=== PATIENT | female | born 1980 | race Caucasian/White ===

== ENCOUNTER → 2020-05-03 11:44 | Outpatient (CLI) | payer BC, SELFPAY ==
[2020-05-03 12:33] LABS: Basophils % 0.6 % (0.1-2.0); Eosinophils # 0.1 K/mm3 (0.0-0.4); Eosinophils % 2.1 % (0.1-12.0); Hematocrit 32.7 % (37.0-47.0); Lymphocytes # 1.3 K/mm3 (0.7-4.5); Lymphocytes % 24.4 % (10-50); Mean Corpuscular HGB Conc 27.6 g/dL (31.8-35.4); Mean Corpuscular Volume 69.1 fl (81-99); Mean Platelet Volume 6.8 fl (7.4-10.4); Monocytes # 0.2 K/mm3 (0.1-1.0); Monocytes % 4.5 % (1.7-9.3); Neutrophils # 3.7 K/mm3 (1.8-7.8); Neutrophils % 68.4 % (37.0-80.0); Platelet Count 454 K/mm3 (142-424); Red Blood Count 4.74 M/mm3 (4.20-5.40); Red Cell Distribution Width 16.6 % (11.5-17.5); White Blood Count 5.4 K/mm3 (4.8-10.8)
[2020-05-03 14:22] LABS: Chol/HDL Ratio 2.5 (1-3.5); Cholesterol 192 mg/dl (140-200); HDL Cholesterol 76 mg/dl (40-60); Triglycerides 109 mg/dl (30-150); VLDL Cholesterol 22 mg/dL (0-40)
[2020-05-03 14:32] LABS: Direct LDL Cholesterol 93.83 mg/dL (100-129)
[2020-05-03 14:39] LABS: 25-OH Vitamin D, Total 37.1 ng/mL (30-100)
[2020-05-03 14:55] LABS: Thyroid Stimulating Hormone 0.89 uIU/mL (0.465-4.68)
[2020-05-03 15:13] LABS: Vitamin B12 921 pg/mL (239-931)
[2020-05-04 15:48] LABS: Iron 24 ug/dL (37-170)
[2020-05-04 15:56] LABS: Total Iron Binding Capacity 460 ug/dL (265-497)
[2020-05-04 16:26] LABS: Ferritin 4.15 ng/ml (6.24-137)
[2020-05-04 18:49] LABS: Folate > 20.00 ng/mL
== END ==
PROVIDERS: Visit Provider Physician Assistant
DX: R53.83 Other fatigue (principal)
CPT/HCPCS: 36415; 80061; 82306; 82607; 82728; 82746; 83540; 83550; 84439; 84443; 85025

== ENCOUNTER → 2020-11-01 14:14 | Outpatient (CLI) | payer BC, OTHER, SELFPAY ==
--- NOTE | 2020-11-01 14:14 | US_ITS ---
PROCEDURE: US TRANSVAGINAL CLINICAL INDICATION: dub Dysfunctional uterine bleeding, pelvic mass on physical exam COMPARISON: No exams were available for comparison FINDINGS: UTERUS: 13cm x 12cmx 10cm. There is a large central fibroid measuring 10 x 8 cm. Endometrial stripe is not visible because of the fibroid. An additional fibroid is also noted posteriorly at 4 x 2.6 cm. LEFT OVARY: [id number] with a volume of 5.3ml. RIGHT OVARY: [id number] with a volume of 8.9ml. No cul-de-sac fluid. IMPRESSION: Enlarged uterus with 10 x 8 cm and a 4 x 2.6 cm fibroid Dictated by: Wilfrido Goldman MD 11/01/2020 17:36 Wilfrido Goldman MD in OV 11/01/2020 17:36
== END ==
PROVIDERS: PCP Family Medicine; Visit Provider Nurse Practitioner Obstetrics & Gynecology
DX: N93.8 Other specified abnormal uterine and vaginal bleeding (principal); D21.9 Benign neoplasm of connective and other soft tissue, unspecified; N85.2 Hypertrophy of uterus
CPT/HCPCS: 76830

== ENCOUNTER → 2020-11-29 08:20 | Outpatient (CLI) | payer BC, OTHER, SELFPAY ==
[2020-11-29 08:55] LABS: Basophils # 0.1 K/mm3 (0-0.2); Basophils % 0.7 % (0.1-2.0); Eosinophils # 0.2 K/mm3 (0.0-0.4); Eosinophils % 2.6 % (0.1-12.0); Hematocrit 43.5 % (37.0-47.0); Hemoglobin 13.7 g/dL (12.2-16.2); Lymphocytes # 1.3 K/mm3 (0.7-4.5); Lymphocytes % 18.1 % (10-50); Mean Corpuscular HGB Conc 31.4 g/dL (31.8-35.4); Mean Corpuscular Hemoglobin 27.9 pg (27.0-31.2); Mean Corpuscular Volume 88.6 fl (81-99); Mean Platelet Volume 7.6 fl (7.4-10.4); Monocytes # 0.4 K/mm3 (0.1-1.0); Monocytes % 5.6 % (1.7-9.3); Neutrophils # 5.1 K/mm3 (1.8-7.8); Platelet Count 347 K/mm3 (142-424); Red Blood Count 4.91 M/mm3 (4.20-5.40); Red Cell Distribution Width 17.1 % (11.5-17.5)
[2020-11-29 09:25] LABS: Chloride 106 mmol/L (98-107)
[2020-11-29 09:26] LABS: Potassium 4.8 mmoL/L (3.5-5.1); Sodium 138 mmol/L (136-145)
[2020-11-29 09:27] LABS: HCG Qualitative, Serum Negative (Negative)
[2020-11-29 09:29] LABS: Anion Gap 15.8 mEq/L (5-15); Blood Urea Nitrogen 11 mg/dl (7-17); Calcium 9.8 mg/dl (8.4-10.2); Carbon Dioxide 21 mmol/L (22.0-30.0); Estimated Glomerular Filt Rate 111 ml/min (>60); GFR (African American) 134 ML/MIN (>60); Glucose 94 mg/dl (74-100)
== END ==
PROVIDERS: PCP Physician Assistant; Visit Provider Nurse Practitioner Obstetrics & Gynecology
DX: Z01.818 Encounter for other preprocedural examination (principal); Z20.822 Contact with and (suspected) exposure to COVID-19; D25.9 Leiomyoma of uterus, unspecified; D64.9 Anemia, unspecified; N92.0 Excessive and frequent menstruation with regular cycle; N85.2 Hypertrophy of uterus
CPT/HCPCS: 36415; 80048; 84703; 85025; U0003

== ENCOUNTER 2020-11-30 10:56 | Inpatient (IN) | payer BC, OTHER, SELFPAY ==
[2020-11-27 10:08] VITALS: BMI 30.1
[2020-11-30] VITALS (27 sets, daily range): BP systolic 110–154; BP diastolic 51–78; PULSE 81–104; RESP 14–18; TEMP 36.3–43; O2SAT 92–100
--- NOTE | 2020-11-30 06:49 | P.PN_ITS ---
[facility] Anesthesia Checklist - Structural Data Admitted From: Home Planned Operative Procedure/s: bhavin,bso Consent for Planned Operative Procedure(s) Verified: Yes - Additional verifications Anesthesia Reactions: No Hx Blood Transfusions: No Blood Transfusion Reaction: No - Airway Assessment C-Spine Mobility Assessed: Yes TMJ Mobility Assessed: Yes Dentition: Good Dentition - Neurological Assessment Level of Consciousness: Awake, Alert, Appropriate - Anesthesia Plan Anesthesia Risk discussed: Yes Anesthesia Plan: Verified ASA Class: II Anesthesia Type: General [facility] History I have reviewed the patient's past medical history: Yes Medical History: Denies:: Cancer, Diabetes Mellitus Type 1, Diabetes Mellitus Type 2, Internal Pacemaker, MRSA *Have you ever received a pneumonia vaccine?: No *Have you received a flu vaccine this season?: Yes Other Medical History: Reports: Anemia. Denies: Blood Transfusion Reaction Anesthesia experience/problems:: none Other Surgeries: Yes: No Previous Surgery, Tubal Ligation. No: Pacemaker Amputation: No Fractures: No - *Social History Last grade of school completed: Advanced degree Smoking Status: Never smoker Alcohol Intake: never Substance Use Type: denies use *Occupational Status:: employed Housing: house Household Members: significant other, family *Travel in the last 8 weeks: None Family Hx:: No significant family history
--- NOTE | 2020-11-30 09:12 | HMH.OPNOTE ---
Date of procedure: 11/30/20 Pre-op Diagnosis:: Symptomatic fibroid uterus, menorrhagia Post-op Diagnosis:: Symptomatic fibroid uterus, menorrhagia Procedure performed:: Total abdominal hysterectomy, bilateral salpingectomy Surgeon:: John Valentine MD Center Line Cutter Operator(s):: Dr. Villagomez MEDICAL ASSISTANT INTERNAL MEDICINE:: Other (MAMIE SULLIVAN) Anesthesia: GETA Estimated blood loss (mL): 450 Clinical Note:: She is a 40-year-old lady who complains of heavy periods. An ultrasound showed a 10 cm fibroid as well as 2 smaller fibroids. She was symptomatic and that she had lots of pressure and menorrhagia. After having discussed the risk and benefits we elected to perform a total abdominal hysterectomy and bilateral salpingectomy. Operative findings:: She had a large uterus that was approximately 18 weeks size. It extended up to the umbilicus. There were also 2 other fibroids one posteriorly approximately 3 cm in size and another pedunculated fibroid on the serosa that was approximately 3 cm in size as well. The uterus itself was very boggy and soft. Operative note:: She was taken the operating room where general anesthesia was found be adequate. She is prepped draped in normal sterile fashion in the supine position. A Child catheter is in the bladder. Midline incision was made with knife from suprapubic area to just below the umbilicus and then carried through to the underlying layer of fascia with cautery. The fascia was opened midline with cautery. The rectus muscles were and the peritoneum identified. It was tented up and entered sharply with Metzenbaum scissors. This incision was then extended superior and inferiorly with cautery. We then inserted an O'Hilario-O'Lockett retractor. At that time it was noted that the uterus was too large for the incision so we extended the incision just above the umbilicus. The bowel was packed away with warm moist packs. The uterine cornua were grasped with large Renetta clamps. Left round ligament was then grasped cut and suture-ligated. This was tagged. We then fenestrated the posterior aspect of the broad ligament and isolated the utero-ovarian artery. This was clamped cut and doubly suture-ligated. We were then able to grasp the tube and using cautery along the mesosalpinx to remove the left tube in its entirety. We then opened up the anterior peritoneum to the midline. The left uterine artery was then clamped cut and suture-ligated. This was followed by clamping cutting and suture ligating with straight Melva clamps along the lateral aspect of the uterus to the level of the uterosacral ligaments. We then turned our attention to the patient's right side. The right round ligament was clamped cut and suture-ligated. The tag was placed on here. This was followed by the fenestrating the posterior aspect of the broad ligament and isolating the utero-ovarian ligaments. This was then clamped cut and doubly suture-ligated. The right tube was then removed by first grasping it with a Shara and using cautery along the mesosalpinx I remove the tube in its entirety. We then took down the anterior peritoneum once again to the midline. I clamped across the right uterine artery with Melva clamp. This was cut and suture-ligated. Then using straight Melva clamps I took down the right side of the uterus including the cardinal ligaments to the level of the uterosacral ligaments. Since the uterus is quite bulky and obstructed our view I elected to amputate the uterus from the cervix. This was done with a knife. We then grasped the cervix with a double-tooth tenaculum. Using straight Melva clamps were then took down the uterosacral ligaments bilaterally. These were clamped cut and suture-ligated. I then clamped across the vaginal vault using curved Melva clamps from each side. The cervix was then amputated from the top of the vagina. The vaginal fornices were then closed with Vicryl suture. I then closed the vaginal vaul
--- NOTE | 2020-11-30 09:16 | HMH.ANESI ---
[facility] Anesthesia Record Part I Intake, IV Amount: 900 Estimated blood loss (mL): 450 Urine output (mL): 50 Blood Pressure: 126/70 SaO2: 93 Pulse Rate: 81 Respiratory Rate: 14 Temperature: 98.4 F Patient is:: Drowsy, Oral/Nasal airway Stable to PACU at:: 09:11
--- NOTE | 2020-11-30 09:51 | HMH.PHAVTE ---
[facility] Pharmacy VTE Monitoring - Patient Demographics Admission date: 11/30/20 Report Date: 11/30/20 Time: 09:51 Allergies/Adverse Reactions: Patient Allergies Penicillins Allergy (Unknown, Verified 11/27/20 10:19) Height: 1.6 m Weight: 77.111 kg - VTE Risk Clinical Trial Participant: No - Prophylaxis VTE Prophylaxis Ordered?: Yes Types of VTE Prophylaxis: IPCS Knee High, Pharmacological Pharmacologic Type: Enoxaparin
--- NOTE | 2020-11-30 10:50 | PC.NURSE ---
Pt arrived to unit via bed and surgery staff x2. Pt is accompanied by her .
[2020-11-30 16:15] LABS: Microscopic,Cath URINE MICROSCOPIC (MICROSCOPIC)
[2020-11-30 16:19] LABS: Appearance,Urine/Cath CLEAR (Clear); Bilirubin,Cath Negative (Negative); Blood, Urine/Cath Negative (Negative); Color,Urine/Cath YELLOW (Yellow); Glucose,Urine/Cath (UA) Negative (Negative); Ketones,Urine/Cath Negative (Negative); Leukocyte Esterase,Cath Negative (Negative); Nitrate,Cath Negative (Negative); Protein,Urine/Cath Negative (Negative); Specific Gravity, Urine/Cath >= 1.030 (1.005-1.030); Urobilinogen,Cath 0.2 EU/dl (0.2)
[2020-11-30 16:26] LABS: Hematocrit 37.7 % (37.0-47.0); Hemoglobin 11.6 g/dL (12.2-16.2)
[2020-11-30 16:41] LABS: Amorphous Sediment,Ur/Cath Trace /lpf; Squamous Epithelial Ur./Cath Occasional #/hpf (0-5)
--- NOTE | 2020-11-30 19:21 | PC.NURSE ---
Report to DevanRN
--- NOTE | 2020-11-30 20:00 | PC.NURSE ---
PT ASSESSMENT COMPLETE,LUNGS CLEAR THROUGHTOUT,POSITIVE BOWEL SOUNDS,VERTICAL INCISION COVERED WITH TELFA AND TEGADERM,SMALL AMT.SEROSANG DRAINAGE TO UPPER AND LOWER PORTIONS OF DRESSING.LONGORIA CATH PATENT AND DRAINING CLEAR YELLOW URINE.PT WAS ABLE TO ACHIEVE 1000ML ON INCENTIVE SPIROMETER,WILL CONTINUE TO MONITOR
[2020-12-01] VITALS (10 sets, daily range): BP systolic 110–135; BP diastolic 57–78; PULSE 81–97; RESP 16–18; TEMP 36.6–37.3; O2SAT 97–98; BMI 30.4
--- NOTE | 2020-12-01 | PC.NURSE ---
UPON ENTERING ROOM,PT WAS LAYING IN BED DROWSY,CLINDAMYCIN HUNG,NO COMPLAINTS VOICED,REPORTS HER PAIN IS TOLERABLE,MAYBE A 3.NOTICED FLUID ON FLOOR AND UNDER BED,A LARGE AMT.THE CLAP ON THE LONGORIA WAS NOT CLOSED AND URINE HAD LEAKED OUT,THIS WAS CLEANED UP.800ML OF CLEAR WHITE URINE EMPTIED FROM LONGORIA,WILL CONTINUE TO MONITOR
--- NOTE | 2020-12-01 00:32 | PC.NURSE ---
Patient kaminski had leaked all over the floor. Large amount noted on the floor.
--- NOTE | 2020-12-01 04:03 | PC.NURSE ---
PT HAS SLEPT ON AND OFF THROUGHTOUT THE NIGHT.LUNGS CLEAR THROUGHTOUT,RESP.EVEN AND UNLABORED,HYPO ACTIVE BOWEL SOUNDS X 4 QUADS,VERTICAL INCISION WITH OLD SEROSANG DRAINAGE TO DRESSING,LONGORIA CATH PATENT AND DRAINING CLEAR YELLOW URINE,CATH CARE AND XANDER-CARE DONE AT THIS TIME,MEDICATED WITH TORADOL MARY JO.PT ONLY RATES PAIN ABOUT A 2-3 ON SCALE OF 0-10
[2020-12-01 05:45] LABS: Basophils % 0.1 % (0.1-2.0); Hematocrit 34.2 % (37.0-47.0); Hemoglobin 10.9 g/dL (12.2-16.2); Lymphocytes % 7.7 % (10-50); Mean Corpuscular Hemoglobin 28.3 pg (27.0-31.2); Mean Corpuscular Volume 88.3 fl (81-99); Mean Platelet Volume 7.3 fl (7.4-10.4); Monocytes # 0.6 K/mm3 (0.1-1.0); Monocytes % 4.6 % (1.7-9.3); Neutrophils # 11.6 K/mm3 (1.8-7.8); Neutrophils % 87.6 % (37.0-80.0); Platelet Count 302 K/mm3 (142-424); Red Blood Count 3.87 M/mm3 (4.20-5.40); Red Cell Distribution Width 17.5 % (11.5-17.5); White Blood Count 13.3 K/mm3 (4.8-10.8)
[2020-12-01 05:48] LABS: MANUAL DIFFERENTIAL MANUAL DIFFERENTIAL (MANUAL DIFF)
[2020-12-01 05:52] LABS: Chloride 105 mmol/L (98-107)
[2020-12-01 05:53] LABS: Potassium 4.3 mmoL/L (3.5-5.1); Sodium 134 mmol/L (136-145)
[2020-12-01 05:55] LABS: Blood Urea Nitrogen 6 mg/dl (7-17); Creatinine Clearance Estimated 184 mL/min (50-200); Estimated Glomerular Filt Rate 137 ml/min (>60); GFR (African American) 165 ML/MIN (>60)
[2020-12-01 05:56] LABS: Anion Gap 9.3 mEq/L (5-15); Carbon Dioxide 24 mmol/L (22.0-30.0); Glucose 126 mg/dl (74-100)
[2020-12-01 06:07] LABS: Calcium 8.5 mg/dl (8.4-10.2)
[2020-12-01 06:11] LABS: Lymphocytes % 7 % (10-50); Monocytes % 5 % (2-9); Neutrophils % 88 % (42-76); Platelet Estimate Normal; RBC Morphology Normal; Total Cells Counted 100
--- NOTE | 2020-12-01 09:23 | HMH.HP ---
*Admission Date: 11/30/20 *Chief complaint: Fibroid uterus, menorrhagia *History of present illness: She is a 40-year-old lady who complains of extremely heavy periods. An ultrasound confirmed a 10 cm fibroid along with a couple of other small fibroids. As result of that she was offered total abdominal hysterectomy and bilateral salpingectomy. [facility] History I have reviewed the patient's past medical history: Yes Medical History: Denies:: Cancer, Diabetes Mellitus Type 1, Diabetes Mellitus Type 2, Internal Pacemaker, MRSA *Have you ever received a pneumonia vaccine?: No *Have you received a flu vaccine this season?: Yes Other Medical History: Reports: Anemia. Denies: Blood Transfusion Reaction Anesthesia experience/problems:: none Other Surgeries: Yes: No Previous Surgery, Tubal Ligation. No: Pacemaker Amputation: No Fractures: No - *Social History Last grade of school completed: Advanced degree Smoking Status: Never smoker Alcohol Intake: never Substance Use Type: denies use *Occupational Status:: employed Housing: house Household Members: significant other, family *Travel in the last 8 weeks: None Family Hx:: No significant family history Review of Systems - Review of Systems Review of systems:: pertinent systems reviewed and negative unless documented below Meds Home Medications Medication Instructions Recorded Confirmed Type duloxetine 60 mg capsule,delayed 60 mg PO DAILY 10/26/20 11/27/20 History release ferrous sulfate 325 mg (65 mg 325 mg PO BID tab 10/26/20 11/30/20 History iron) tablet Multivit/Iron/Folic Acid/Hb179 1 tab PO DAILY 11/27/20 11/30/20 History [Womens Multivit Hi Potency Tab] Pnv No.95/Ferrous Fum/Folic AC 1 tab PO DAILY 11/27/20 11/30/20 History [ Caplet] Allergies Allergy/AdvReac Type Severity Reaction Status Date / Time Penicillins Allergy Unknown Verified 11/27/20 10:19 Exam Vital signs and Labs for Last 24 Hours: Temp Pulse Resp BP Pulse Ox 98.2 F 86 18 131/78 98 12/01/20 08:46 12/01/20 08:46 12/01/20 08:46 12/01/20 08:46 12/01/20 08:46 Laboratory Results - last 24 hr 11/30/20 07:45: Urine Color Yellow, Urine Appearance Clear, Urine pH 6.0, Ur Specific [place] >= 1.030, Urine Protein Negative, Urine Glucose (UA) Negative, Urine Ketones Negative, Urine Blood Negative, Urine Nitrate Negative, Urine Bilirubin Negative, Urine Urobilinogen 0.2, Ur Leukocyte Esterase Negative, Urine RBC None, Urine WBC None, Ur Squamous Epith Cells Occasional, Urine Bacteria None 11/30/20 16:20: Hgb 11.6 L, Hct 37.7 12/01/20 02:20: WBC 13.3 H D, RBC 3.87 L, Hgb 10.9 L, Hct 34.2 L, MCV 88.3, MCH 28.3, MCHC 32.0, RDW 17.5, Plt Count 302, MPV 7.3 L, Neut % (Auto) 87.6 H, Lymph % (Auto) 7.7 L, [place] % (Auto) 4.6, Eos % (Auto) 0.0 L, Baso % (Auto) 0.1, Neut # (Auto) 11.6 H, Lymph # (Auto) 1.0, [place] # (Auto) 0.6, Eos # (Auto) 0.0, Baso # (Auto) 0.0, Total Counted 100, Neutrophils % (Manual) 88 H, Lymphocytes % (Manual) 7 L, Monocytes % (Manual) 5, Platelet Estimate Normal, RBC Morphology Normal 12/01/20 02:20: Sodium 134 L, Potassium 4.3, Chloride 105, Carbon Dioxide 24, Anion Gap 9.3, BUN 6 L D, Creatinine 0.50 L, Estimated Creat Clear 184, Estimated GFR 137, Est GFR ( Amer) 165 D, Glucose 126 H, Calcium 8.5 D I & O for Last 24 hours: Intake & Output 11/28/20 11/29/20 11/30/20 12/01/20 11:59 11:59 11:59 11:59 Intake Total 1050 / 1050 2650 / 2650 Output Total 100 / 100 2200 / 2200 Balance 950 / 950 450 / 450 Weight 172 lb - Constitutional no acute distress - *Routine HEENT Exam Head: Present: normocephalic Eye: Present: EOMI, PERRL ENT: Present: mucous membranes moist - *Routine Neck Exam Present: supple, full ROM - *Routine Respiratory Exam Absent: accessory muscle use (good air entry bilaterally), wheezes, crackles - *Routine Cardiovascular Exam Present: RRR. Absent: murmur - *Routine Abdominal Exam Present: soft, normoact
--- NOTE | 2020-12-01 09:25 | P.PN_ITS ---
Internal Medicine - PN: Subj *Date: 12/01/20 *Time: 09:25 Interval history: She is doing very well this morning. She is eating and drinking and ambulating. She has had her Child removed. She has not voided yet. She has not had a bowel movement. She denies any nausea vomiting. She denies any chest pain, shortness of breath or calf tenderness. Exam Vital signs and Labs for Last 24 Hours: Temp Pulse Resp BP Pulse Ox 98.2 F 86 18 131/78 98 12/01/20 08:46 12/01/20 08:46 12/01/20 08:46 12/01/20 08:46 12/01/20 08:46 Laboratory Results - last 24 hr 11/30/20 07:45: Urine Color Yellow, Urine Appearance Clear, Urine pH 6.0, Ur Specific [place] >= 1.030, Urine Protein Negative, Urine Glucose (UA) Negative, Urine Ketones Negative, Urine Blood Negative, Urine Nitrate Negative, Urine Bilirubin Negative, Urine Urobilinogen 0.2, Ur Leukocyte Esterase Negative, Urine RBC None, Urine WBC None, Ur Squamous Epith Cells Occasional, Urine Bacteria None 11/30/20 16:20: Hgb 11.6 L, Hct 37.7 12/01/20 02:20: WBC 13.3 H D, RBC 3.87 L, Hgb 10.9 L, Hct 34.2 L, MCV 88.3, MCH 28.3, MCHC 32.0, RDW 17.5, Plt Count 302, MPV 7.3 L, Neut % (Auto) 87.6 H, Lymph % (Auto) 7.7 L, [place] % (Auto) 4.6, Eos % (Auto) 0.0 L, Baso % (Auto) 0.1, Neut # (Auto) 11.6 H, Lymph # (Auto) 1.0, [place] # (Auto) 0.6, Eos # (Auto) 0.0, Baso # (Auto) 0.0, Total Counted 100, Neutrophils % (Manual) 88 H, Lymphocytes % (Manual) 7 L, Monocytes % (Manual) 5, Platelet Estimate Normal, RBC Morphology Normal 12/01/20 02:20: Sodium 134 L, Potassium 4.3, Chloride 105, Carbon Dioxide 24, Anion Gap 9.3, BUN 6 L D, Creatinine 0.50 L, Estimated Creat Clear 184, Estimat ed GFR 137, Est GFR ( Amer) 165 D, Glucose 126 H, Calcium 8.5 D I & O for Last 24 hours: Intake & Output 11/28/20 11/29/20 11/30/20 12/01/20 11:59 11:59 11:59 11:59 Intake Total 1050 / 1050 2650 / 2650 Output Total 100 / 100 2200 / 2200 Balance 950 / 950 450 / 450 Weight 172 lb - Constitutional no acute distress - *Routine HEENT Exam Head: Present: normocephalic Eye: Present: EOMI, PERRL ENT: Present: mucous membranes moist - *Routine Neck Exam Present: supple. Absent: lymphadenopathy - *Routine Respiratory Exam Present: CTA bilaterally - *Routine Cardiovascular Exam Present: RRR - *Routine Abdominal Exam Present: soft, normoactive bowel sounds. Absent: tenderness Comments: Her incision is clean and dry. Dressing change today. Assessment and Plan (1) Menorrhagia Status: Acute Category: Medical Code(s): N92.0 - Excessive and frequent menstruation with regular cycle (2) Uterine fibroid Status: Acute Category: Medical Code(s): D25.9 - Leiomyoma of uterus, unspecified - Assessment and plan all Dx Assessment and Plan for all problems:: She is doing very well this morning. We will plan to change to her dressing and clean the incision. She will stay for another 48 hours.
--- NOTE | 2020-12-01 10:38 | HMH.ANESII ---
[facility] Anesthesia Record Part II Discharge Time: 10:21 Destination: Obstetric PACU nurse assessment reviewed?: Yes Patient Condition:: Good Anesthesia Complications:: None Swallowing reflex intact?: Yes Cyanosis?: No Blood Pressure: 110/58 Pulse Rate: 95 Temperature: 98 F Mental Status: Alert & Oriented Pain level:: 5 Nausea and/or vomitting:: None Intake, IV Amount: 0
--- NOTE | 2020-12-01 11:33 | PC.NURSE ---
1045 IV S/L for pt to ambulate to BR to void and take a shower. RN present for stand by assistance with ambulation, tolerated activity well. Pt was able to void without any issues. Bed linens changed by pt while up to the shower. 1100 Returned to bed, tolerated activity well. Abdominal pain well managed at this time.
--- NOTE | 2020-12-01 11:40 | PC.NURSE ---
1110 Incision care performed by RN. T/T dressing removed, incision is C/D/I with sutures and no s/s infection noted. Pt educated on caring for incision and SSI, V/U. Incision cleaned with hibiclens per MD verbal order and redressed with adhesive island dressing. Pt tolerated care well.
--- NOTE | 2020-12-01 16:34 | PC.NURSE ---
1610 RN reassessment completed, no acute changes from previous assessment. A & OX4. VSS. Pts pain is well controlled with scheduled toradol and PRN oxycodone. Abd soft and mildly tender with BS active in all quads. Vertical incision with dressing intact, scant amount of shadowing noted to dressing. Pt reports passing flatus and voiding without any difficulty. Pt is tolerating ambulation to and from BR well. Incentive spirometer used by pt as instructed. Lung sounds CTA with no s/s distress. 20 to R forearm patent and infusing without difficulty. Bed locked and in lowest position with side rails up x2, call light within reach. Will continue to monitor.
--- NOTE | 2020-12-01 20:35 | PC.NURSE ---
PT AMBULATED TO BATHROOM WITHOUT DIFF.VOIDED 150ML OF YELLOW URINE,PT REMOVED HER CONTACT LENS FOR BED AND PUT HER GLASSES ON.ANOTHER BAG LR WAS HUNG,PT DENIES ANY NEED FOR PAIN MEDICINES AT THIS TIME.
--- NOTE | 2020-12-02 02:45 | PC.NURSE ---
PT WENT TO BATHROOM TO SEE IF SHE COULD HAVE A BOWEL MOVEMENT,FEELING PRESSURE,REPORTED SHE PASSED MAYBE A LITTLE GAS,NO BOWEL MOVEMENT.VOIDED A SIGNIFICANT AMT,MYLICON 160MG PO GIVEN FOR GAS AND OXYCODONE 10MG AND TYLENOL 650 MG PO FOR PAIN OF A 4 OUT OF 0-10 SCALE,TOLD HER WOULD GIVE HER TORADOL AROUND 0400 AND GET V/S.PT V/U
[2020-12-02 04:00] VITALS: BP 125/63; PULSE 92; RESP 17; TEMP 36.7; O2SAT 94
--- NOTE | 2020-12-02 04:16 | PC.NURSE ---
NO ACUTE CHANGES IN PREVIOUS ASSESSMENT,LUNGS CLEAR ALL FRONT,RESP.EVEN AND UNLABORED.SAT LEVEL THIS MORNING WAS 94 % ON RA.PT AFIBRILE,POSITIVE BOWEL SOUNDS X4 QUADS,PT REPORTS THE MYLICON HELPED,SHE IS PASSING GAS NOW,DENIES ANY PAIN AT THIS TIME.DRESSING C.D.I,IV SITE WITHOUT S/S OF INFECTION OR INFILTRATION.ANOTHER BAG OF LR HUNG.MARY JO TORADOL GIVEN.WILL CONTINUE TO MONITOR
[2020-12-02 05:00] VITALS: BMI 31.8
--- NOTE | 2020-12-02 08:00 | PC.NURSE ---
0800 Incisional care performed during AM assessment, tolerated well by pt. Dressing removed and incision cleaned with hibiclens. Incision with sutures intact, no s/s infection. Incision covered with adhesive island dressing.
[2020-12-02 08:01] VITALS: BP 117/65; PULSE 86; RESP 17; TEMP 36.7; O2SAT 97
[2020-12-02 12:01] VITALS: BP 114/60; PULSE 88; RESP 16; TEMP 37; O2SAT 97
--- NOTE | 2020-12-02 13:11 | HMH.ACPN2 ---
Internal Medicine - PN: Subj *Date: 12/02/20 *Time: 13:11 Interval history: She is doing very well this morning. She is eating and drinking and ambulating. She is voiding well. She has not had a bowel movement but she is passing gas. Her pain is well controlled. Exam Vital signs and Labs for Last 24 Hours: Temp Pulse Resp BP Pulse Ox 98.6 F 88 16 114/60 97 12/02/20 12:01 12/02/20 12:01 12/02/20 12:01 12/02/20 12:01 12/02/20 12:01 I & O for Last 24 hours: Intake & Output 11/30/20 12/01/20 12/02/20 12/03/20 11:59 11:59 11:59 11:59 Intake Total 1050 / 1050 2650 / 2650 1925 / 1925 Output Total 100 / 100 2400 / 2400 1250 / 1250 300 / 300 Balance 950 / 950 250 / 250 675 / 675 -300 / -300 Weight 172 lb 179 lb 6 oz - Constitutional no acute distress - *Routine HEENT Exam Head: Present: normocephalic Eye: Present: EOMI, PERRL ENT: Present: mucous membranes moist Assessment and Plan (1) Menorrhagia Status: Acute Category: Medical Code(s): N92.0 - Excessive and frequent menstruation with regular cycle (2) Uterine fibroid Status: Acute Category: Medical Code(s): D25.9 - Leiomyoma of uterus, unspecified - Assessment and plan all Dx Assessment and Plan for all problems:: She continues to do well. We will see her back again in the morning and send her home.
[2020-12-02 16:06] VITALS: BP 138/80; PULSE 92; RESP 18; TEMP 36.9; O2SAT 98
--- NOTE | 2020-12-02 16:18 | PC.NURSE ---
1610 RN reassessment completed, no acute changes from AM assessment. A & O X4. VSS. Pt has received scheduled toradol this shift, has not requested any PRN pain medication. Pt reports dull pain in her abdomen as a 3 on a 0-10 scale at this time, reports this is tolerable for her. Pt reports I may take some pain medicine before bed tonight. Abd soft and mildly tender with BS active in all quads. Pt reports passing gas this shift and voiding without any difficulty. No BM. Pt is tolerating regular diet well with no N/V. Vertical incision with adhesive island dressing intact, no drainage noted. Wound care and dressing change performed this AM with assessment. Lung sounds CTA, no SOA. Pt showered today and bed linens were changed. Pt reports that she has rested well today, denies any needs. Will continue to monitor.
[2020-12-02 20:30] VITALS: BP 115/68; PULSE 90; RESP 18; TEMP 36.9; O2SAT 96
[2020-12-02 23:12] VITALS: BP 118/75; PULSE 88; RESP 18; TEMP 36.9; O2SAT 95
[2020-12-03 03:30] VITALS: BP 112/63; PULSE 90; RESP 18; TEMP 37; O2SAT 95
--- NOTE | 2020-12-03 03:44 | PC.NURSE ---
REASSESSMENT DONE,PT HAS SLEPT WELL TONIGHT,NO ACUTE CHANGES FROM PREVIOUS ASSESSMENT,LUNGS CLEAR THROUGHTOUT,RESP.EVEN AND UNLABORED.POSITIVE BOWEL SOUNDS X4 QUADS,PT REPORTS PASSING SOME GAS,DENIES ANY BOWEL MOVEMENT,NO DRAINAGE TO VERTICAL DEN DRESSING.PT VOIDING WITHOUT DIFF.HAS VOIDED 1000ML CLEAR YELLOW URINE THUS FAR THIS SHIFT,HAS ONLY TAKEN MARY JO TORADOL,DENIES NEEDING ANYTHING ELSE AT THIS TIME.WILL CONTINUE TO MONITOR
[2020-12-03 08:07] VITALS: BP 120/58; PULSE 88; RESP 17; TEMP 36.9; O2SAT 99
--- NOTE | 2020-12-03 08:31 | PC.NURSE ---
0810 Dressing removed and vertical incision cleaned with hibiclens per MD order. Incision with sutures intact, bruising noted but no s/s infection. Incision left AMPARO at this time in anticipation of MD rounding this morning, no drainage noted. Pt tolerated wound care well.
--- NOTE | 2020-12-03 09:26 | HMH.DCSUM ---
General - General Admission date:: 11/30/20 Discharge date: 12/03/20 HPI HPI: She is a 40-year-old lady who complains of extremely heavy periods. An ultrasound confirmed a 10 cm fibroid along with a couple of other small fibroids. As result of that she was offered total abdominal hysterectomy and bilateral salpingectomy. Hospital Course Hospital Course: On November 30, 2020 she underwent a total abdominal hysterectomy and bilateral salpingectomy. She has done well postoperatively and has remained afebrile throughout her hospitalization. She denies chest pain, shortness of breath or calf tenderness. Her incision is clean and dry. She is passing gas. Her blood work is normal. Her urine output has been normal. She will be discharged home today to follow-up with me in approximately 2 weeks time. She has sutures and not margaret in her incision. There is some bruising around the incision but otherwise it is healing well and there is no evidence of infection. She will keep the incision clean. She will apply triple antibiotic ointment as well on a daily basis. She will continue with her home medications. She was given a prescription for Percocet 5/325 number 20 tablets. She will take Tylenol and ibuprofen at home as well. She was given the usual instructions with respect to limiting her activity, driving and sexual activity. Her condition on discharge is stable and improved. Objective Vital signs: Temp Pulse Resp BP Pulse Ox 98.5 F 88 17 120/58 L 99 12/03/20 08:07 12/03/20 08:07 12/03/20 08:07 12/03/20 08:07 12/03/20 08:07 no acute distress - *Routine HEENT Exam Head: Present: normocephalic (You should have the girls take a look at her clonus there could get a teaching moment she is got like for 5 beats there of clonus Zora just sits there and goes like this like her feet so her brief looks really good) Eye: Present: EOMI, PERRL ENT: Present: mucous membranes moist - *Routine Respiratory Exam Present: CTA bilaterally - *Routine Cardiovascular Exam Present: RRR - *Routine Abdominal Exam Present: soft, normoactive bowel sounds. Absent: tenderness Comments: Her incision is clean and dry. DS: Diagnosis - Discharge Diagnosis (1) Menorrhagia Status: Acute (2) Uterine fibroid Status: Acute Discharge Plan - Patient Discharge Instructions ACTIVITY: No heavy lifting DIET: continue same diet Additional Instructions: No heavy lifting/strenuous activity. No driving for 2 weeks or while taking prescription narcotics. Nothing in the vagina for 6 weeks. Patient Instructions: Hysterectomy -- Open Surgery, Surgical Site Infection, DI for Postoperative Pain, Preventing the Spread of Coronavirus Discharge Instructions - Follow up Plan Follow up with: John Valentine MD [Staff Physician] - 12/13/20 9:30 am Disposition: Home, Self-Long Term Medications: Home Medications Medication Instructions Recorded Confirmed Type duloxetine 60 mg capsule,delayed 60 mg PO DAILY 10/26/20 11/27/20 History release ferrous sulfate 325 mg (65 mg 325 mg PO BID tab 10/26/20 11/30/20 History iron) tablet Multivit/Iron/Folic Acid/Hb179 1 tab PO DAILY 11/27/20 11/30/20 History [Womens Multivit Hi Potency Tab] Pnv No.95/Ferrous Fum/Folic AC 1 tab PO DAILY 11/27/20 11/30/20 History [ Caplet] Oxycodone HCl/Acetaminophen 1 tab PO Q4-6H PRN #20 tablet 12/03/20 Rx [Percocet 5/325mg tablet] Prescriptions/Medication Reconciliation: New Oxycodone HCl/Acetaminophen [Percocet 5/325mg tablet] 1 tab PO Q4-6H PRN #20 tablet PRN Reason: Severe Pain Continued duloxetine 60 mg capsule,delayed release 60 mg PO DAILY ferrous sulfate 325 mg (65 mg iron) tablet 325 mg PO BID tab Pnv No.95/Ferrous Fum/Folic AC [ Caplet] 1 tab PO DAILY Multivit/Iron/Folic Acid/Hb179 [Womens Multivit Hi Potency Tab] 1 tab PO DAILY - Problem Reconciliation Problems Re
--- NOTE | 2020-12-03 10:23 | PC.NURSE ---
1005 Discharge education provided to pt, questions encouraged and answered.
== END 2020-12-03 10:10 | disposition home or self-care (01) | DRG 743 ==
LOC: OB 12-01 03:40
PROVIDERS: Admitting Provider Nurse Practitioner Obstetrics & Gynecology; PCP Family Medicine; Visit Provider Nurse Practitioner Obstetrics & Gynecology
PROC: 0UT90ZZ Resection of Uterus, Open Approach (ICD-10-PCS; CPT 58150; principal; 2020-11-30 07:30)
DX: N92.0 Excessive and frequent menstruation with regular cycle (principal); D25.9 Leiomyoma of uterus, unspecified
CPT/HCPCS: 58150; 36415; 80048; 81001; 85007; 85014; 85018; 85025; 94761; 96372; 96374; G0283; J1956; J2405

== ENCOUNTER → 2020-12-27 09:45 | Outpatient (CLI) | payer BC, OTHER, SELFPAY ==
[2020-12-27 10:29] LABS: Basophils % 0.4 % (0.1-2.0); Eosinophils # 0.3 K/mm3 (0.0-0.4); Eosinophils % 3.8 % (0.1-12.0); Hemoglobin 13.1 g/dL (12.2-16.2); Lymphocytes # 1.4 K/mm3 (0.7-4.5); Lymphocytes % 21.3 % (10-50); Mean Corpuscular HGB Conc 31.9 g/dL (31.8-35.4); Mean Corpuscular Hemoglobin 27.6 pg (27.0-31.2); Mean Corpuscular Volume 86.5 fl (81-99); Mean Platelet Volume 7.6 fl (7.4-10.4); Monocytes # 0.4 K/mm3 (0.1-1.0); Monocytes % 5.6 % (1.7-9.3); Neutrophils # 4.6 K/mm3 (1.8-7.8); Neutrophils % 68.8 % (37.0-80.0); Platelet Count 431 K/mm3 (142-424); Red Blood Count 4.75 M/mm3 (4.20-5.40); Red Cell Distribution Width 15.9 % (11.5-17.5); White Blood Count 6.7 K/mm3 (4.8-10.8)
[2020-12-27 10:59] LABS: Chloride 104 mmol/L (98-107); Sodium 137 mmol/L (136-145)
[2020-12-27 11:00] LABS: Potassium 4.3 mmoL/L (3.5-5.1)
[2020-12-27 11:02] LABS: Alanine Aminotransferase 21 U/L (12-78); Alkaline Phosphatase 74 U/L (38-126); Anion Gap 14.3 mEq/L (5-15); Aspartate Amino Transferase 30 U/L (14-36); Bilirubin,Total 0.4 mg/dl (0.2-1.3); Blood Urea Nitrogen 16 mg/dl (7-17); Carbon Dioxide 23 mmol/L (22.0-30.0); Estimated Glomerular Filt Rate 137 ml/min (>60); GFR (African American) 165 ML/MIN (>60)
[2020-12-27 11:03] LABS: Albumin Level 4.6 g/dl (3.5-5.0); Albumin/Globulin Ratio 1.6 (1.1-1.8); Calcium 9.5 mg/dl (8.4-10.2); Globulin 2.8 g/dL (1.3-3.2); Glucose 98 mg/dl (74-100); Total Protein,Serum 7.4 g/dl (6.3-8.2)
[2020-12-27 11:20] LABS: Free Thyroxine Index 2.4 ug/dL (5.93-13.13); T4 (Thyroxine) 8.1 ug/dl (5.53-11.0); Triiodothryronine (T3) Uptake 30 % (23.5-40.5)
[2020-12-27 11:34] LABS: Thyroid Stimulating Hormone 0.92 uIU/mL (0.465-4.68)
== END ==
PROVIDERS: Visit Provider Nurse Practitioner Obstetrics & Gynecology
DX: N64.3 Galactorrhea not associated with childbirth (principal)
CPT/HCPCS: 36415; 80053; 84146; 84436; 84443; 84479; 85025

== ENCOUNTER → 2021-01-10 09:24 | Outpatient (CLI) | payer BC, OTHER, SELFPAY ==
[2021-01-11 11:32] LABS: Prolactin 78.1 ng/mL (4.8-23.3)
== END ==
PROVIDERS: Visit Provider Nurse Practitioner Obstetrics & Gynecology
DX: N64.3 Galactorrhea not associated with childbirth (principal)
CPT/HCPCS: 36415; 84146

== ENCOUNTER → 2021-10-03 08:22 | Outpatient (CLI) | payer BC, OTHER, SELFPAY ==
--- NOTE | 2021-10-03 08:25 | MM_ITS ---
PROCEDURE INFORMATION: Exam: MG Bilateral Screening 3D Mammography Exam date and time: 10/03/2021 8:25 AM Age: 41 years old Clinical indication: Encounter for screening mammogram for malignant neoplasm of breast . Family history of breast carcinoma. TECHNIQUE: Imaging protocol: Bilateral Screening tomosynthesis and 2D mammography including computer-aided detection (CAD) when performed. COMPARISON: No relevant prior studies available. FINDINGS: MAMMOGRAPHY: Breast composition: There are scattered areas of fibroglandular density. Mass: No suspicious masses. Architectural distortion: No suspicious distortion. Calcifications: No suspicious calcifications. Asymmetric density: None. Skin thickening: None. Axillary adenopathy: None. IMPRESSION: No mammographic evidence of malignancy. Annual screening is recommended unless otherwise clinically indicated. ASSESSMENT: BI-RADS Category 1: Negative
[2021-10-03 10:36] LABS: Basophils % 0.6 % (0.1-2.0); Eosinophils # 0.2 K/mm3 (0.0-0.4); Eosinophils % 3.3 % (0.1-12.0); Hemoglobin 15.7 g/dL (12.2-16.2); Lymphocytes # 1.1 K/mm3 (0.7-4.5); Lymphocytes % 17.9 % (10-50); Mean Corpuscular HGB Conc 33.4 g/dL (31.8-35.4); Mean Corpuscular Hemoglobin 30.8 pg (27.0-31.2); Mean Corpuscular Volume 92.2 fl (81-99); Mean Platelet Volume 8.7 fl (7.4-10.4); Monocytes # 0.5 K/mm3 (0.1-1.0); Monocytes % 7.1 % (1.7-9.3); Neutrophils # 4.5 K/mm3 (1.8-7.8); Platelet Count 497 K/mm3 (142-424); Red Blood Count 5.09 M/mm3 (4.20-5.40); Red Cell Distribution Width 12.9 % (11.5-17.5); White Blood Count 6.3 K/mm3 (4.8-10.8)
[2021-10-03 12:53] LABS: Chloride 103 mmol/L (98-107); Potassium 4.5 mmoL/L (3.5-5.1); Sodium 135 mmol/L (136-145)
[2021-10-03 12:55] LABS: Alanine Aminotransferase 16 U/L (12-78); Alkaline Phosphatase 78 U/L (38-126); Aspartate Amino Transferase 25 U/L (14-36); Bilirubin,Total 0.7 mg/dl (0.2-1.3); Blood Urea Nitrogen 11 mg/dl (7-17); Estimated Glomerular Filt Rate 92 ml/min (>60); GFR (African American) 112 ML/MIN (>60)
[2021-10-03 12:56] LABS: Albumin Level 5.5 g/dl (3.5-5.0); Albumin/Globulin Ratio 1.7 (1.1-1.8); Anion Gap 11.5 mEq/L (5-15); Calcium 9.1 mg/dl (8.4-10.2); Carbon Dioxide 25 mmol/L (22.0-30.0); Chol/HDL Ratio 2.7 (1-3.5); Cholesterol 225 mg/dl (140-200); Globulin 3.2 g/dL (1.3-3.2); Glucose 90 mg/dl (74-100); HDL Cholesterol 83 mg/dl (40-60); Iron 84 ug/dL (37-170); Total Protein,Serum 8.7 g/dl (6.3-8.2); Triglycerides 91 mg/dl (30-150); VLDL Cholesterol 18 mg/dL (0-40)
[2021-10-03 13:06] LABS: Total Iron Binding Capacity 345 ug/dL (265-497)
[2021-10-03 13:07] LABS: Direct LDL Cholesterol 114.03 mg/dL (100-129)
== END ==
PROVIDERS: PCP Family Medicine; Visit Provider Physician Assistant
DX: Z12.31 Encounter for screening mammogram for malignant neoplasm of breast (principal); D64.9 Anemia, unspecified; Z13.220 Encounter for screening for lipoid disorders
CPT/HCPCS: 36415; 77063; 77067; 80053; 80061; 83540; 83550; 85025

== ENCOUNTER → 2022-01-29 15:07 | Outpatient (CLI) | payer BC, OTHER, SELFPAY | PROVIDERS: PCP Physician Assistant; Visit Provider Nurse Practitioner Obstetrics & Gynecology | DX: Z80.3 Family history of malignant neoplasm of breast (principal) ==

== ENCOUNTER → 2022-10-08 11:56 | Outpatient (CLI) | payer BC, OTHER, SELFPAY ==
--- NOTE | 2022-10-08 11:56 | US_ITS ---
PROCEDURE INFORMATION: Exam: US Left Breast, Complete, Screening US Right Breast, Complete, Screening MG Bilateral Screening 3D Mammography Exam date and time: 10/08/2022 12:24 PM Age: 42 years old Clinical indication: Screening examination; Family history of breast cancer TECHNIQUE: Imaging protocol: Complete ultrasound of all four quadrants of the Left breast and the retroareolar regions, including ultrasound of the axilla when performed. Complete ultrasound of all four quadrants of the Right breast and the retroareolar regions, including ultrasound of the axilla when performed. Bilateral Screening tomosynthesis and 2D mammography including computer-aided detection (CAD) when performed. COMPARISON: MG MM DIG SCREENING MAMM BI W/CAD 10/03/2021 8:27 AM FINDINGS: MAMMOGRAPHY: Breast composition: There are scattered areas of fibroglandular density. Mass: None. Architectural distortion: None. Calcifications: None. Asymmetric density: None. Skin thickening: None. Axillary adenopathy: None. ULTRASOUND: Right solid masses: None. Right cystic masses: None. Right architectural distortion: None. Right acoustical shadowing: None. Right skin thickening: None. Right axillary adenopathy: None. Left solid masses: None. Left cystic masses: None. Left architectural distortion: None. Left acoustical shadowing: None. Left skin thickening: None. Left axillary adenopathy: None. IMPRESSION: No mammographic or sonographic evidence of malignancy. Annual screening is recommended unless otherwise clinically indicated. ASSESSMENT: BI-RADS Category 1: Negative
== END ==
PROVIDERS: PCP Physician Assistant; Visit Provider Nurse Practitioner Obstetrics & Gynecology
DX: Z12.31 Encounter for screening mammogram for malignant neoplasm of breast (principal); N60.19 Diffuse cystic mastopathy of unspecified breast; Z80.3 Family history of malignant neoplasm of breast
CPT/HCPCS: 76641; 77063; 77067

== ENCOUNTER → 2022-11-29 11:48 | Outpatient (CLI) | payer BC, OTHER, SELFPAY ==
[2022-11-29 13:13] LABS: Basophils # 0.1 K/mm3 (0-0.2); Basophils % 1.4 % (0.1-2.0); Eosinophils # 0.2 K/mm3 (0.0-0.4); Eosinophils % 3.3 % (0.1-12.0); Hemoglobin 14.7 g/dL (12.2-16.2); Lymphocytes # 1.3 K/mm3 (0.7-4.5); Lymphocytes % 23.1 % (10-50); Mean Corpuscular HGB Conc 31.9 g/dL (31.8-35.4); Mean Corpuscular Hemoglobin 30.3 pg (27.0-31.2); Mean Corpuscular Volume 95.1 fl (81-99); Mean Platelet Volume 8.9 fl (7.4-10.4); Monocytes # 0.3 K/mm3 (0.1-1.0); Monocytes % 6.2 % (1.7-9.3); Neutrophils # 3.7 K/mm3 (1.8-7.8); Neutrophils % 66.1 % (37.0-80.0); Platelet Count 388 K/mm3 (142-424); Red Blood Count 4.84 M/mm3 (4.20-5.40); Red Cell Distribution Width 12.7 % (11.5-17.5); White Blood Count 5.6 K/mm3 (4.8-10.8)
[2022-11-29 13:26] LABS: Chloride 103 mmol/L (98-107); Potassium 4.9 mmoL/L (3.5-5.1); Sodium 137 mmol/L (136-145)
[2022-11-29 13:28] LABS: Blood Urea Nitrogen 12 mg/dl (7-17); Estimated Glomerular Filt Rate 110 ml/min (>60); GFR (African American) 133 ML/MIN (>60)
[2022-11-29 13:29] LABS: Alanine Aminotransferase 17 U/L (12-78); Albumin Level 4.5 g/dl (3.5-5.0); Albumin/Globulin Ratio 1.7 (1.1-1.8); Alkaline Phosphatase 58 U/L (38-126); Anion Gap 10.9 mEq/L (5-15); Aspartate Amino Transferase 24 U/L (14-36); Bilirubin,Total 0.3 mg/dl (0.2-1.3); Calcium 8.8 mg/dl (8.4-10.2); Carbon Dioxide 28 mmol/L (22.0-30.0); Cholesterol 190 mg/dl (140-200); Globulin 2.7 g/dL (1.3-3.2); Glucose 84 mg/dl (74-100); Total Protein,Serum 7.2 g/dl (6.3-8.2); Triglycerides 98 mg/dl (30-150); VLDL Cholesterol 20 mg/dL (0-40)
[2022-11-29 13:41] LABS: Direct LDL Cholesterol 103.84 mg/dL (100-129)
[2022-11-29 14:01] LABS: Chol/HDL Ratio 3.3 (1-3.5); HDL Cholesterol 57 mg/dl (40-60)
== END ==
PROVIDERS: PCP Family Medicine; Visit Provider Nurse Practitioner Obstetrics & Gynecology
DX: Z01.419 Encounter for gynecological examination (general) (routine) without abnormal findings (principal)
CPT/HCPCS: 36415; 80053; 80061; 85025

== ENCOUNTER 2023-10-20 15:02 | Outpatient (POV) | payer BC, OTHER, SELFPAY | END 2023-10-20 23:59 | disposition home or self-care (01) | LOC: SC 15:03 | PROVIDERS: PCP Family Medicine; Visit Provider Dermatology | DX: Z00.00 Encounter for general adult medical examination without abnormal findings (principal) ==

== ENCOUNTER 2023-12-21 14:57 | Outpatient (CLI) | payer BC, SELFPAY ==
--- NOTE | 2023-12-21 14:57 | MM_ITS ---
PROCEDURE INFORMATION: Exam: MG Bilateral Screening 3D Mammography Exam date and time: 12/21/2023 3:11 PM Age: 43 years old Clinical indication: Screening examination. Her sister, maternal and paternal cousin, and maternal aunt had breast cancer. TECHNIQUE: Imaging protocol: Bilateral Screening tomosynthesis and 2D mammography including computer-aided detection (CAD) when performed. COMPARISON: 1. MG MM DIG SCREENING MAMM BI W/CAD 10/08/2022 1:05 PM 2. MG MM DIG SCREENING MAMM BI W/CAD 10/03/2021 8:27 AM 3. US BREAST LT COMPLETE 10/08/2022 12:24 PM 4. US BREAST RT COMPLETE 10/08/2022 12:13 PM FINDINGS: MAMMOGRAPHY: Breast composition: There are scattered areas of fibroglandular density. Mass: None. Architectural distortion: None. Calcifications: No suspicious calcifications. Asymmetric density: None. Skin thickening: None. Axillary adenopathy: None. IMPRESSION: No mammographic evidence of malignancy. Annual screening is recommended unless otherwise clinically indicated. ASSESSMENT: BI-RADS Category 1: Negative
== END 2023-12-21 23:59 | disposition home or self-care (01) ==
LOC: RAD 14:57
PROVIDERS: PCP Family Medicine; Visit Provider Nurse Practitioner Obstetrics & Gynecology
DX: Z12.31 Encounter for screening mammogram for malignant neoplasm of breast (principal)
CPT/HCPCS: 77063; 77067

== ENCOUNTER 2024-01-11 07:27 | Outpatient (CLI) | payer BC, SELFPAY ==
[2024-01-11 07:50] LABS: Basophils # 0.1 K/mm3 (0-0.2); Basophils % 0.9 % (0.1-2.0); Eosinophils # 0.2 K/mm3 (0.0-0.4); Eosinophils % 3.9 % (0.1-12.0); Hematocrit 43.4 % (37.0-47.0); Hemoglobin 14.2 g/dL (12.2-16.2); Lymphocytes # 1.7 K/mm3 (0.7-4.5); Lymphocytes % 27.2 % (10-50); Mean Corpuscular HGB Conc 32.8 g/dL (31.8-35.4); Mean Corpuscular Hemoglobin 30.9 pg (27.0-31.2); Mean Corpuscular Volume 94.5 fl (81-99); Mean Platelet Volume 7.6 fl (7.4-10.4); Monocytes # 0.4 K/mm3 (0.1-1.0); Monocytes % 5.6 % (1.7-9.3); Neutrophils # 3.9 K/mm3 (1.8-7.8); Neutrophils % 62.3 % (37.0-80.0); Platelet Count 323 K/mm3 (142-424); Red Blood Count 4.59 M/mm3 (4.20-5.40); White Blood Count 6.2 K/mm3 (4.8-10.8)
[2024-01-11 09:59] LABS: Alanine Aminotransferase 19 U/L (12-78); Albumin Level 4.2 g/dl (3.5-5.0); Albumin/Globulin Ratio 1.6 (1.1-1.8); Alkaline Phosphatase 66 U/L (38-126); Anion Gap 15.9 mEq/L (5-15); Aspartate Amino Transferase 25 U/L (14-36); Bilirubin,Total 0.3 mg/dl (0.2-1.3); Blood Urea Nitrogen 15 mg/dl (7-17); Calcium 9.4 mg/dl (8.4-10.2); Carbon Dioxide 25 mmol/L (22.0-30.0); Chloride 103 mmol/L (98-107); Chol/HDL Ratio 2.8 (1-3.5); Cholesterol 206 mg/dl (140-200); Estimated Glomerular Filt Rate 109 ml/min (>60); GFR (African American) 132 ML/MIN (>60); Globulin 2.7 g/dL (1.3-3.2); Glucose 79 mg/dl (74-100); HDL Cholesterol 73 mg/dl (40-60); Potassium 3.9 mmoL/L (3.5-5.1); Sodium 140 mmol/L (136-145); Total Protein,Serum 6.9 g/dl (6.3-8.2); Triglycerides 148 mg/dl (30-150); VLDL Cholesterol 30 mg/dL (0-40)
[2024-01-11 10:10] LABS: Direct LDL Cholesterol 101.11 mg/dL (100-129)
[2024-01-12 08:32] LABS: FSH 5.7 mIU/mL (.); LH 9.9 mIU/mL (.)
== END 2024-01-11 23:59 | disposition home or self-care (01) ==
LOC: LAB 07:28
PROVIDERS: PCP Nurse Practitioner Family; Visit Provider Nurse Practitioner Obstetrics & Gynecology
DX: Z01.419 Encounter for gynecological examination (general) (routine) without abnormal findings (principal)
CPT/HCPCS: 36415; 80053; 80061; 83001; 83002; 85025

== ENCOUNTER 2024-11-10 23:01 | Emergency (ER) | payer BC, SELFPAY ==
[2024-11-10 23:12] VITALS: BP 138/83; PULSE 64; RESP 16; TEMP 36.6; O2SAT 100; BMI 29.2
--- NOTE | 2024-11-10 23:12 | HMH.EDGENADL ---
Discharge Plan Disposition Patient Disposition: Home, Self-Care Prescriptions Prescriptions: New ondansetron HCl 4 mg tablet 4 mg PO Q8H PRN (Reason: nausea and vomiting) 5 Days Qty: 30 0RF No Action phentermine [Adipex-P] 37.5 mg tablet 37.5 mg PO DAILY Qty: 30 0RF Rx Instructions: must administer 30 minutes before or 1-2 hours after breakfast duloxetine 30 mg capsule,delayed release(DR/EC) 30 mg PO DAILY Qty: 90 3RF Referrals Follow up/Referrals: Jamison Monterroso APRN [Primary Care Provider] - See instructions Angel Madrid MD [Staff Physician] - See instructions Activity Restrictions/Add. Instructions Additional Instructions/Restrictions: Please call Dr. Madrid's office in the morning to schedule follow-up as soon as possible. If you have persistent right upper quadrant pain, vomiting, fever, etc., recommend returning to the emergency department as this could be consistent with gallbladder infection. Take Zofran as needed for nausea and vomiting. Consider Tums/Maalox or omeprazole or Pepcid to help with stomach acid as this could be related to your stomach. Clinical Impressions Clinical Impression: Acute epigastric pain Instructions Patient Instructions: DI for Acute Abdominal Pain Print Language Print Language: Gabonese Discharge ED Provider: Wilfredo Higgins Adult HPI General Chief complaint: Abdominal Pain Stated complaint: upper abd pain Time Seen by Provider: 11/10/24 23:09 History of Present Illness HPI narrative: 44-year-old female presents for epigastric abdominal pain. She reports that started this morning and has been worsening. She thought it was reflux/GERD but it has not been getting better. She reports that the pain does sometimes move towards the right side. Denies any chest pain or shortness of breath. Reports some nausea and vomiting. Reports she has been having normal bowel movements, denies any urinary symptoms. Reports history of hysterectomy. Denies significant NSAID use. Related Data Previous Rx's ?Medication ?Instructions ?Recorded phentermine 37.5 mg tablet 37.5 mg PO DAILY #30 tabs 01/14/23 (Adipex-P) duloxetine 30 mg capsule,delayed 30 mg PO DAILY #90 caps 12/28/23 release ondansetron HCl 4 mg tablet 4 mg PO Q8H PRN nausea and 03/21/25 vomiting 5 days #30 tabs Allergies Allergy/AdvReac Type Severity Reaction Status Date / Time Penicillins Allergy Unknown Verified 12/21/23 14:22 [facility] Disclaimer: The information contained in this section may have been updated after the patient was seen, as this information can be updated by other users. 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 caffeine: Yes Have you lived/traveled outside [place] in past 30 days?: No Contact w/someone who lives/traveled outside US past 30 days?: No Exposure to someone with infectious disease in past 14 days?: No Do you have a fever (greater than 100.4 F or 38 C)?: No Have you tested positive for COVID-19: No Exposed to someone with COVID-19 in past 14 days?: No Do you have a sore throat?: No Do you have a cough?: No Do you have any weakness?: No Do you have any diarrhea?: No Are you experiencing any unusual bleeding?: No Do you have any muscle aches/pain?: No Do you have any abdominal pain?: Yes Are you experiencing loss of taste or smell?: No Other Medical History Have you received the Flu Vaccine for this season: No Have you received the Pneumonia Vaccine: No ROS Obtained: Yes All systems reviewed & no additional complaints except as documented Physical Exam General General appearance: alert and in no apparent distress Head Head exam: atraumatic and normocephalic Eye Eye exam: Present normal appearance, PERRL and EOMI ENT ENT exam: Present normal oropharynx and normal external ear exam Neck Neck exam: Present normal inspection and full ROM Chest Chest inspection: Present normal inspection and symmetric chest wall rise; Absent tenderness Respiratory Respiratory exam: Present normal lung sounds bilaterally; Absent respiratory distress Cardiovascular Cardiovascular exam: Present regular rate and normal rhythm Abdominal Exam Abdominal exam: Present soft and tenderness (Epigastric. No significant right upper quadrant tenderness); Absent distention or guarding Extremities Exam Extremities exam: Present normal inspection; Absent edema or joint swelling Back Exam Back exam: Present normal inspection; Absent tenderness Neurological Exam Neurological exam: Present alert and oriented X3; Absent motor sensory deficit Psychiatric Psychiatric exam: Present normal affect and normal mood Skin Skin exam: Present warm, dry and normal color Lymphatic Lymphatic Findings: no adenopathy Medical Decision Making Medical Records Medical records reviewed: Yes I reviewed the patient's medical records. Screening: Per USPSTF and CDC recommendations, given the prevalence of disease in our region, it is our hospital?s policy to screen for HIV and viral Hepatitis for all patients aged 18 and over and those with ongoing risk factors. German Inquiry Pt receiving controlled substance: No German was queried for this patient: No Vital Signs: 11/10/24 23:12 11/10/24 23:54 11/11/24 00:01 Temperature 97.8 F Temperature Source Oral Pulse Rate 67 57 L Pulse Rate [Radial] 64 Respiratory Rate 16 Blood Pressure 144/85 H Blood Pressure [Right Arm] 138/83 Blood Pressure Mean Blood Pressure Mean [Right Arm] 101 Blood Pressure Position Blood Pressure Position [Right Arm] Sitting 02 Sat by Pulse Oximetry 100 100 99 Oxygen Delivery Method Room Air 11/11/24 00:30 11/11/24 01:25 Temperature 98 F Temperature Source Oral Pulse Rate 67 78 Pulse Rate [Radial] Respiratory Rate 14 Blood Pressure 131/76 138/78 Blood Pressure [Right Arm] Blood Pressure Mean 94 Blood Pressure Mean [Right Arm] Blood Pressure Position Sitting Blood Pressure Position [Right Arm] 02 Sat by Pulse Oximetry 100 Oxygen Delivery Method Room Air Room Air Lab Data Lab results reviewed: Yes I reviewed the patient's lab results. Lab Results 11/10/24 23:36: WBC 12.7 H, RBC 4.78, Hgb 14.5, Hct 42.3, MCV 88.5, MCH 30.3, MCHC 34.3, RDW 12.2, Plt Count 366, MPV 9.5, Neut % (Auto) 86.9 H, Lymph % (Auto) 7.4 L, [place]onder[place] % (Auto) 4.3, Eos % (Auto) 0.5, Baso % (Auto) 0.4, Neut # (Auto) 11.0 H, Lymph # (Auto) 0.9, [place] # (Auto) 0.6, Eos # (Auto) 0.1, Baso # (Auto) 0.1, Sodium 134 L, Potassium 4.0, Chloride 100, Carbon Dioxide 28, Anion Gap 10.0, BUN 9, Creatinine 0.60, Estimated Creat Clear 137, Estimated GFR 109, Est GFR ( Amer) 131, Glucose 125 H, Calcium 9.9, Total Bilirubin 0.6, AST 46 H, ALT 55, Alkaline Phosphatase 80, Troponin I < 0.01, Total Protein 7.8, Albumin 4.9, Globulin 2.9, Albumin/Globulin Ratio 1.7, Lipase 73 11/10/24 23:36 11/10/24 23:36 Orders (Tests/Meds): ED MEDICATIONS Discontinued Medications Generic Name Dose Route Start Last Admin Trade Name Freq PRN Reason Stop Dose Admin Acetaminophen 1,000 mg 11/10/24 23:27 11/10/24 23:43 Acetaminophen 500mg Tab PO 11/10/24 23:28 1,000 mg ONCE ONE Administration Lactated Ringer's 1,000 mls @ 999 mls/hr 11/10/24 23:30 11/10/24 23:49 Lactated Ringer's 1000 Ml Bag IV 11/11/24 00:30 999 mls/hr .Q1H1M MARY JO Administration Iopamidol 75 ml 11/10/24 23:55 11/10/24 23:56 Iopamidol-370 (76%);100ml Bottle IV 11/10/24 23:56 75 ml ONCE ONE Administration Ketorolac Tromethamine 30 mg 11/10/24 23:27 11/10/24 23:43 Ketorolac 30mg/Ml Vial IV 11/10/24 23:28 30 mg ONCE ONE Administration Morphine Sulfate 4 mg 11/10/24 23:27 11/10/24 23:42 Morphine 4mg/Ml Syringe IV 11/10/24 23:28 4 mg ONCE ONE Administration Ondansetron HCl 4 mg 11/10/24 23:27 11/10/24 23:43 Ondansetron 4mg/2ml Vial IV 11/10/24 23:28 4 mg ONCE ONE Administration Sodium Chloride 10 ml 11/10/24 23:55 11/10/24 23:56 Sodium Chloride 0.9% 10ml Syr (Rad Only) IV 12/10/24 23:54 10 ml NEEDED PRN Administration Maintain IV Site ORDERS Category Date Time Status CT abdomen pelvis w con Stat Cat Scan 11/10/24 23:27 Completed CBC w/Auto Diff [Complete Blood Count Auto Diff] Stat Lab 11/10/24 23:36 Completed CMP [Comprehensive Metabolic Panel] Stat Lab 11/10/24 23:36 Completed Lipase Stat Lab 11/10/24 23:36 Completed Troponin I Q3H Lab 11/10/24 23:36 Completed Troponin I Q3H Lab 11/11/24 02:30 Ordered Medical Decision Narrative: 44-year-old female with history of hysterectomy presents for epigastric pain with some radiation to the right with associated nausea and vomiting. Ongoing for 1 day. History was obtained via interactive discussion with patient, family, chart review. On arrival, patient is [afebrile, hemodynamically stable, satting appropriately, alert, oriented x4, GCS 15], moving all extremities spontaneously. Full physical exam performed and significant for moderate epigastric tenderness, no significant right upper quadrant tenderness Differential includes but is not limited to gastritis, gastroenteritis, pancreatitis cholecystitis, symptomatic cholelithiasis, choledocholithiasis, constipation, cardiac pathology. Patient was given Tylenol Toradol morphine Zofran for symptomatic management and correction of underlying abnormalities. Workup initiated including CBC CMP lipase. I attempted bedside ultrasound of the right upper quadrant multiple times but was never able to obtain diagnostic views, likely due to obstructing gas. On re-evaluation, patient reports that her pain markedly improved, nearly gone Laboratory workup independently interpreted by me and significant for minimal leukocytosis with white count of 12, no significant electrolyte derangement, AST 46, normal bilirubin, lipase normal negative initial troponin,. Imaging independently interpreted by me and significant for large volume of colonic gas in the hepatic flexure. Fair amount of stool within the right colon. The gallbladder is prominent with mild wall thickening according to radiology. See radiology read for full review of final results. EKG independently interpreted by me and significant for sinus bradycardia, rate of 58, no ischemic changes or evidence of arrhythmia.. I had extensive discussion with patient regarding presentation. The underlying cause of her pain remains unclear. On reassessment of her abdomen, she has no tenderness in right upper quadrant and only minimal epigastric tenderness to deep palpation. I again attempted to ultrasound the patient taking a transhepatic approach to try to avoid the colonic gas. I remained unsuccessful in obtaining diagnostic images of the gallbladder. Patient is afebrile and well-appearing and has no right upper quadrant pain or tenderness, is very reassuring the patient does not have acute cholecystitis. However, there are abnormalities of the gallbladder noted on CT. Certainly could be symptomatic cholelithiasis though no radiopaque stone seen on CT. No evidence of other pathology such as cholangitis pancreatitis etc. Presentation could also be consistent with gastritis, GERD etc. Additionally, patient has a large volume of colonic gas in the right upper quadrant that could also potentially explain her pain. We unfortunately do not have capability of performing formal ultrasound at night. I offered the patient the option to stay in our ER overnight with the goal of obtaining a stat ultrasound in the morning when technicians become available. The other option would be discharged with strict return precautions for any recurrent symptoms or signs of cholecystitis, with plan to call the general surgeons office in the morning for urgent follow-up. After discussion, patient reports she preferred to be discharged and follow-up/return with new or worsening symptoms. I think this is reasonable. She was discharged with prescription for Zofran and information for Dr. Madrid's office. Procedures Risk/Benefits of Procedure(s) Were Explained: Yes Critical Care Critical Care Time Critical Care Time: No
--- NOTE | 2024-11-10 23:27 | CT_ITS ---
PROCEDURE INFORMATION: Exam: CT Abdomen And Pelvis With Contrast Exam date and time: 11/10/2024 11:49 PM Age: 44 years old Clinical indication: Abdominal pain; Epigastric; Additional info: Epigastric/ruq pain TECHNIQUE: Imaging protocol: Computed tomography of the abdomen and pelvis with contrast. Radiation optimization: All CT scans at this facility use at least one of these dose optimization techniques: automated exposure control; mA and/or kV adjustment per patient size (includes targeted exams where dose is matched to clinical indication); or iterative reconstruction. Contrast material: ISOVUE; Contrast volume: 75 ml; Contrast route: IV; COMPARISON: US TRANSVAGINAL 11/01/2020 2:22 PM FINDINGS: Esophagus: The esophagus is normal. Liver: Normal. No mass. Gallbladder and biliary ducts: Prominent gallbladder image . Pancreas: Pancreas appears normal. Spleen: Spleen is normal Adrenal glands: The adrenal glands appear normal. Kidneys and ureters: The kidneys are normal. Stomach and bowel: The stomach is normal. Appendix: A normal appendix is identified. Intraperitoneal space: Unremarkable. No free air. No significant fluid collection. Vasculature: Portal vein, splenic vein, SMV are patent. The aorta is normal. Visceral arteries are patent. Lymph nodes: No free air or fluid or adenopathy. Urinary bladder: The bladder is normal. Reproductive: Small right adnexal cyst image . Uterus not visualized; possible hysterectomy Bones/joints: Unremarkable. No acute fracture. Soft tissues: Unremarkable. IMPRESSION: 1. No free air or fluid or adenopathy. 2. Prominent gallbladder with mild wall thickening image . Recommend ultrasound and/or HIDA scan to further delineate this finding. 3. Nonspecific bowel gas pattern. 4. Normal appendix.
--- NOTE | 2024-11-10 23:41 | ECG_ITS ---
APPROVED REPORT Exam: Resting ECG HR:58 bpm ECG Measurements Heart Rate 58 AXES IA 144 P 60 QRSd 96 QRS 72 QT 415 T 69 QTc 412 Conclusion SINUS BRADYCARDIA BORDERLINE ECG UNCONFIRMED REPORT Electronically signed by : BURTON AC, 11/11/2024 02:22:28
[2024-11-10 23:42] LABS: Basophils # 0.1 K/mm3 (0-0.2); Basophils % 0.4 % (0.1-2.0); Eosinophils # 0.1 K/mm3 (0.0-0.4); Eosinophils % 0.5 % (0.1-12.0); Hematocrit 42.3 % (37.0-47.0); Hemoglobin 14.5 g/dL (12.2-16.2); Lymphocytes # 0.9 K/mm3 (0.7-4.5); Lymphocytes % 7.4 % (10-50); Mean Corpuscular HGB Conc 34.3 g/dL (31.8-35.4); Mean Corpuscular Hemoglobin 30.3 pg (27.0-31.2); Mean Corpuscular Volume 88.5 fl (81-99); Mean Platelet Volume 9.5 fl (7.4-10.4); Monocytes # 0.6 K/mm3 (0.1-1.0); Monocytes % 4.3 % (1.7-9.3); Neutrophils % 86.9 % (37.0-80.0); Platelet Count 366 K/mm3 (142-424); Red Blood Count 4.78 M/mm3 (4.20-5.40); Red Cell Distribution Width 12.2 % (11.5-17.5); White Blood Count 12.7 K/mm3 (4.8-10.8)
[2024-11-10] MEDS: MORPHINE 4MG/ML SYRINGE 4 MG IV (23:42)
[2024-11-10] MEDS: KETOROLAC 30MG/ML VIAL 30 MG IV (23:43)
[2024-11-10] MEDS: ACETAMINOPHEN 500MG TAB 1000 MG PO (23:43)
[2024-11-10] MEDS: ONDANSETRON 4MG/2ML VIAL 4 MG IV (23:43)
[2024-11-10 23:48] LABS: Albumin Level 4.9 g/dl (3.5-5.0); Chloride 100 mmol/L (98-107); Sodium 134 mmol/L (136-145)
[2024-11-10] MEDS: LACTATED RINGERS 1000ML 1,000 ML 999 ML IV (23:49)
[2024-11-10 23:51] LABS: Alanine Aminotransferase 55 U/L (12-78); Albumin/Globulin Ratio 1.7 (1.1-1.8); Alkaline Phosphatase 80 U/L (38-126); Aspartate Amino Transferase 46 U/L (14-36); Bilirubin,Total 0.6 mg/dl (0.2-1.3); Blood Urea Nitrogen 9 mg/dl (7-17); Carbon Dioxide 28 mmol/L (22.0-30.0); Creatinine Clearance Estimated 137 mL/min (50-200); Estimated Glomerular Filt Rate 109 ml/min (>60); GFR (African American) 131 ML/MIN (>60); Globulin 2.9 g/dL (1.3-3.2); Lipase 73 U/L (23-300); Total Protein,Serum 7.8 g/dl (6.3-8.2)
[2024-11-10 23:52] LABS: Calcium 9.9 mg/dl (8.4-10.2); Glucose 125 mg/dl (74-100)
[2024-11-10 23:54] VITALS: PULSE 67; O2SAT 100
[2024-11-10] MEDS: IOPAMIDOL-370 (76%);100ML BOTTLE 75 ML IV (23:56)
[2024-11-10] MEDS: SODIUM CHLORIDE 0.9% 10ML SYR (RAD ONLY) 10 ML IV (23:56)
[2024-11-11 00:01] VITALS: BP 144/85; PULSE 57; O2SAT 99
[2024-11-11 00:05] LABS: Troponin I < 0.01 ng/ml (0.00-0.034)
[2024-11-11 00:30] VITALS: BP 131/76; PULSE 67; O2SAT 100
[2024-11-11 01:25] VITALS: BP 138/78; PULSE 78; RESP 14; TEMP 36.6; O2SAT 100
== END 2024-11-11 01:26 | disposition home or self-care (01) ==
PROVIDERS: Emergency Provider Emergency Medicine; PCP Nurse Practitioner Family
DX: R10.13 Epigastric pain (principal); R11.2 Nausea with vomiting, unspecified
CPT/HCPCS: 74177; 80053; 83690; 84484; 85025; 93005; 96361; 96374; 96375; 99285; J1885; J2270; J2405; J7120; Q9967

== ENCOUNTER 2024-11-16 14:27 | Outpatient (CLI) | payer BC, SELFPAY ==
[2024-11-16 14:59] LABS: Basophils # 0.1 K/mm3 (0-0.2); Basophils % 0.7 % (0.1-2.0); Eosinophils # 0.2 K/mm3 (0.0-0.4); Eosinophils % 3.3 % (0.1-12.0); Hematocrit 43.7 % (37.0-47.0); Hemoglobin 14.5 g/dL (12.2-16.2); Lymphocytes # 1.4 K/mm3 (0.7-4.5); Lymphocytes % 19.7 % (10-50); Mean Corpuscular HGB Conc 33.2 g/dL (31.8-35.4); Mean Corpuscular Hemoglobin 30.5 pg (27.0-31.2); Mean Platelet Volume 9.6 fl (7.4-10.4); Monocytes # 0.5 K/mm3 (0.1-1.0); Monocytes % 6.5 % (1.7-9.3); Neutrophils # 4.8 K/mm3 (1.8-7.8); Neutrophils % 69.5 % (37.0-80.0); Platelet Count 357 K/mm3 (142-424); Red Blood Count 4.75 M/mm3 (4.20-5.40); Red Cell Distribution Width 12.3 % (11.5-17.5); White Blood Count 6.9 K/mm3 (4.8-10.8)
[2024-11-16 15:23] LABS: Alanine Aminotransferase 30 U/L (12-78); Albumin Level 4.8 g/dl (3.5-5.0); Alkaline Phosphatase 55 U/L (38-126); Anion Gap 19.1 mEq/L (5-15); Aspartate Amino Transferase 28 U/L (14-36); Bilirubin,Total 0.4 mg/dl (0.2-1.3); Blood Urea Nitrogen 16 mg/dl (7-17); Calcium 9.9 mg/dl (8.4-10.2); Carbon Dioxide 19 mmol/L (22.0-30.0); Chloride 104 mmol/L (98-107); Estimated Glomerular Filt Rate 109 ml/min (>60); GFR (African American) 131 ML/MIN (>60); Globulin 2.4 g/dL (1.3-3.2); Glucose 92 mg/dl (74-100); Potassium 4.1 mmoL/L (3.5-5.1); Sodium 138 mmol/L (136-145); Total Protein,Serum 7.2 g/dl (6.3-8.2)
== END 2024-11-16 23:59 | disposition home or self-care (01) ==
LOC: LAB 14:28
PROVIDERS: PCP Nurse Practitioner Family; Visit Provider Surgery
DX: R10.13 Epigastric pain (principal); R93.2 Abnormal findings on diagnostic imaging of liver and biliary tract
CPT/HCPCS: 36415; 80053; 85025

== ENCOUNTER 2024-11-23 07:21 | Outpatient (CLI) | payer BC, SELFPAY ==
--- NOTE | 2024-11-23 07:30 | US_ITS ---
FINAL REPORT TECHNIQUE: Multiple transverse and longitudinal images CLINICAL HISTORY: Right upper quad pain FINDINGS: The gallbladder is stone filled. No biliary ductal dilatation is appreciated. No fluid collections are seen. Limited portions of the right liver are unremarkable. Limited portions of the right kidney are unremarkable. IMPRESSION: Stone filled gallbladder without evidence of acute cholecystitis or biliary ductal dilatation. Reviewed, Interpreted and Dictated by Shelby Montoya MD Transcribed by Adalgisa Maier Authenticated and [facility]
== END 2024-11-23 23:59 | disposition home or self-care (01) ==
LOC: RAD 07:22
PROVIDERS: PCP Nurse Practitioner Family; Visit Provider Surgery
DX: R10.13 Epigastric pain (principal)
CPT/HCPCS: 76705

== ENCOUNTER 2024-12-09 12:26 | Outpatient (CLI) | payer BC, SELFPAY | END 2024-12-09 23:59 | disposition home or self-care (01) | LOC: PREOP 12:27 | PROVIDERS: PCP Nurse Practitioner Family; Visit Provider Surgery | DX: R69 Illness, unspecified (principal) ==

== ENCOUNTER 2024-12-15 06:06 | Day surgery (SDC) | payer BC, SELFPAY ==
[2024-12-09 12:49] VITALS: BMI 28.3
[2024-12-15] VITALS (11 sets, daily range): BP systolic 106–121; BP diastolic 53–71; PULSE 71–87; RESP 12–18; TEMP 36.1–38; O2SAT 95–100
[2024-12-15] MEDS: 0.9 % SODIUM CHLORIDE 1000ML 1,000 ML 25 ML IV (06:30)
[2024-12-15] MEDS: CLINDAMYCIN PHOSPHATE/D5W 900 MG/50 ML PIGGYBACK 50 MG (07:15)
--- NOTE | 2024-12-15 07:40 | P.PNANES_ITS ---
[facility] Disclaimer: The information contained in this section may have been updated after the patient was seen, as this information can be updated by other users. 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 caffeine: Yes Have you lived/traveled outside [place] in past 30 days?: No Contact w/someone who lives/traveled outside [place] past 30 days?: No Exposure to someone with infectious disease in past 14 days?: No Do you have a fever (greater than 100.4 F or 38 C)?: No Have you tested positive for COVID-19: No Exposed to someone with COVID-19 in past 14 days?: No Do you have a sore throat?: No Do you have a cough?: No Do you have any weakness?: No Are you experiencing any nausea/vomitting?: No Do you have any diarrhea?: No Are you experiencing any unusual bleeding?: No Do you have any muscle aches/pain?: No Do you have any abdominal pain?: No Are you experiencing loss of taste or smell?: No [facility] Anesthesia Checklist Patient Identification Patient Identification: Verbal (Name & ) Structural Data Admitted From: Home Planned Operative Procedure/s: lap giancarlo NPO Status Verified Time NPO: 00:00 Additional verifications Anesthesia Reactions: No Hx Blood Transfusions: No Blood Transfusion Reaction: No Airway Assessment Mallampati Score:: Class II C-Spine Mobility Assessed: Yes TMJ Mobility Assessed: Yes Dentition: Good Dentition Neurological Assessment Level of Consciousness: Awake, Alert and Appropriate Anesthesia Plan Anesthesia Risk discussed: Yes Anesthesia Plan: Verified ASA Class: II Anesthesia Type: General
[2024-12-15] MEDS: LIDOCAINE 1% 20ML MDV 20 ML (07:44)
--- NOTE | 2024-12-15 09:06 | EXP.OP.NOTE ---
Date of procedure: 12/15/24 Pre-op Diagnosis:: Symptomatic cholelithiasis Post-op Diagnosis:: Acute on chronic calculus cholecystitis Procedure performed:: Laparoscopic cholecystectomy Surgeon:: Angel Madrid MD AUTOMOTIVE WELDER:: Alirio Pérez Anesthesia: GETA Estimated blood loss (mL): 25 Operative findings:: Multiple large stones within gallbladder Fairly severe gallbladder distention Severe infundibular thickening Serosal weeping Dense adhesions of omentum and small bowel/colon to anterior abdominal wall secondary to prior surgery Operative note:: After informed consent was obtained, the patient was taken to the operating room and placed in the supine position. General anesthesia was induced and the abdomen was prepped and draped in a sterile fashion. After infiltration with local anesthetic an infraumbilical incision was made. A Veress needle was placed in position. The abdomen was insufflated. A 5 mm optical trocar was placed in position. Under direct visualization, a 12 mm trocar was placed in the subxiphoid position and 2 additional 5 mm trocars were placed in the right upper quadrant. Dense adhesions along the anterior abdominal wall were noted. Omental adhesions and adhesions between small bowel/colon and anterior abdominal wall were carefully taken down bluntly in the periumbilical region. No obvious injury to the small bowel or colon was noted. No active bleeding was noted. The gallbladder was elevated up and over the liver margin. Fairly severe distention and serosal weeping were noted. Multiple large stones were notable throughout the gallbladder lumen. The tissue around the cystic duct was carefully dissected. 3 clips were placed proximally and the duct was transected with harmonic carlota. Harmonic carlota were then utilized to dissect the gallbladder away from the liver margin with careful attention to the control of the cystic artery. The gallbladder was placed in a retrieval bag and removed through the subxiphoid trocar site. The right upper quadrant was thoroughly irrigated. No active bleeding or bile leak was noted. Fascia at the subxiphoid trocar site was reapproximated utilizing 0 Ethibond. The remaining trocars were removed. All wounds were irrigated and skin was closed with 4-0 Monocryl in an interrupted mattress fashion to facilitate hemostasis. The patient's anesthetic agents were reversed and extubation was completed prior to transfer to recovery in stable condition. Condition: stable Disposition: PACU Specimens:: Gallbladder and contents Complications:: No immediate
--- NOTE | 2024-12-15 09:14 | P.PNANES_ITS ---
[facility] Anesthesia Record Part I Anesthesia Record I Intake, IV Amount: 2,500 Hydration: Adequate Estimated blood loss (mL): 120 Urine output (mL): 0 Blood Pressure: 121/70 SaO2: 100 Pulse Rate: 78 Airway Patency: Patent Respiratory Rate: 12 Temperature: 98 F Patient is:: Awake and Stable Stable to PACU at:: 09:10
--- NOTE | 2024-12-15 16:11 | P.PNANES_ITS ---
[facility] Anesthesia Record Part II Anesthesia Record Part II Discharge Time: 09:40 Destination: Surgical Day Care (OP Surgery) PACU nurse assessment reviewed?: Yes Patient Condition:: Good Anesthesia Complications:: None Swallowing reflex intact?: Yes Airway Patency: Patent Cyanosis?: No Blood Pressure: 120/70 SaO2: 100 Respiratory Rate: 16 Pulse Rate: 72 Temperature: 97 F Mental Status: Alert & Oriented Pain level:: 0 Nausea and/or vomitting:: None Intake, IV Amount: 0 Hydration: Adequate
== END 2024-12-15 10:11 | disposition home or self-care (01) ==
PROVIDERS: PCP Nurse Practitioner Family; Visit Provider Surgery
PROC: 0FT44ZZ Resection of Gallbladder, Percutaneous Endoscopic Approach (ICD-10-PCS; CPT 47562; principal; 2024-12-15 07:30)
DX: K81.2 Acute cholecystitis with chronic cholecystitis (principal)
CPT/HCPCS: 47562; 96374; J0736; J1100; J1596; J1885; J2250; J2405; J2710; J3010; J7030; J7120

== ENCOUNTER 2025-01-26 12:45 | Outpatient (CLI) | payer BC, SELFPAY ==
--- NOTE | 2025-01-26 13:00 | MM_ITS ---
PROCEDURE INFORMATION: Exam: MG Bilateral Screening 3D Mammography Exam date and time: 01/26/2025 1:03 PM Age: 44 years old Clinical indication: Screening examination. TECHNIQUE: Imaging protocol: Bilateral Screening tomosynthesis and 2D mammography including computer-aided detection (CAD) when performed. COMPARISON: 1. MG MM DIG SCREENING MAMM BI W/CAD 12/21/2023 3:11 PM 2. MG MM DIG SCREENING MAMM BI W/CAD 10/08/2022 1:05 PM FINDINGS: MAMMOGRAPHY: Breast composition: There are scattered areas of fibroglandular density. Mass: There is a 0.4 cm oval circumscribed mass in the left upper inner quadrant, 3 cm from the nipple. Architectural distortion: None. Calcifications: No suspicious calcifications. Asymmetric density: None. Skin thickening: None. Axillary adenopathy: None. IMPRESSION: Patient to be recalled for left breast ultrasound for further evaluation of a left breast mass. ASSESSMENT: BI-RADS Category 0: Incomplete- Need Additional Imaging Evaluation.
== END 2025-01-26 23:59 | disposition home or self-care (01) ==
LOC: RAD 12:46
PROVIDERS: PCP Nurse Practitioner Family; Visit Provider Nurse Practitioner Obstetrics & Gynecology
DX: Z12.31 Encounter for screening mammogram for malignant neoplasm of breast (principal); N63.22 Unspecified lump in the left breast, upper inner quadrant
CPT/HCPCS: 77063; 77067

== ENCOUNTER 2025-02-03 14:45 | Outpatient (CLI) | payer BC, SELFPAY ==
--- OUTSIDE RECORDS SUMMARY | 2025-02-03 14:47 | XMS_ITS | Data Portability ---
Author Organization [facility] Address [address] [place] [address] Care Team Providers Care [employer] Name Role Phone LESTER MONTERROSO Primary Care Provider Assessment No assessment recorded. Plan of Treatment Reminders Order Date Submit Date Provider Last Modified By Organization Details Last Modified Time Details Appointments None recorded. Lab rapid strep group A, throat 2024 025 [facility], [address] [place] [address], [phone], 5 09:31:18 rapid SARS CoV + SARS CoV 2 Ag, QL [place], respiratory specimen 2024 025 [facility], [address] [place] [address], [phone], 5 09:31:18 rapid flu (A+B) 2024 025 [facility], [address] [place] [address], [address], 5 09:31:18 TSH + free T4, serum 2023 024 [facility], [address], Adi F, [place], [address], 4 12:09:03 HbA1c (hemoglobin A1c), blood 2023 024 [facility], [address], Adi F, [place], [address], 4 12:09:04 CMP, serum or plasma 2023 024 [facility], [address], Ad[place] F, [place], [address], 4 12:09:03 lipid panel, serum 2023 024 [facility], [address], Adi F, [place], [address], 4 12:09:03 drug screen, urine 2023 [facility], [address] [place], [address], 4 16:38:05 Referral None recorded. Procedures None recorded. Surgeries None recorded. Imaging None recorded. Medication Orders Tamiflu 75 mg capsule 2024 025 [facility], [address] [place], [address], 5 09:31:23 phentermine 37.5 mg tablet 2023 024 [facility], [address] [place], [address], 5 08:55:19 phentermine 37.5 mg tablet 2023 024 [facility], [address] [place], [address], 5 08:55:19 phentermine 37.5 mg tablet 2023 024 [facility], [address] [place], [address], 5 08:55:19 Patient TargetsNo targets recorded. Patient Instructions Encounter Date Encounter Id Patient Instructions Last Modified By Organization Details Last Modified Time 04/21/2024 [id number] learning about healthy weight efryman Not available 04/21/2024 14:26:50 body mass index: care instructions efryman Not available 04/21/2024 14:26:50 Reason for Referral None Reported. Results Created Date Observation Date Name Description Value Unit Range Abnormal Flag Note LastModifiedBy Organization Detail LastModifiedTime 05/23/20 24 05/23/2024 drug scree n, urine THC negati ve Not Available [address], [address], 05/23/2024 15:47:13 05/23/20 24 05/23/2024 drug scree n, urine TCA negati ve Not Available [address], [address], 05/23/2024 15:47:13 05/23/20 24 05/23/2024 drug scree n, urine BAR negati ve Not Available [address], [address], 05/23/2024 15:47:13 05/23/20 24 05/23/2024 drug scree n, urine BZO negati ve Not Available [address], [address], 05/23/2024 15:47:13 05/23/20 24 05/23/2024 drug scree n, urine MTD negati ve Not Available [address], [address], 05/23/2024 15:47:13 05/23/20 24 05/23/2024 drug scree n, urine AMP positi ve Not Available [address], [address], 05/23/2024 15:47:13 05/23/20 24 05/23/2024 drug scree n, urine MOP negati ve Not Available [address], [address], 05/23/2024 15:47:13 05/23/20 24 05/23/2024 drug scree n, urine OXY negati ve Not Available [address], [address], 05/23/2024 15:47:13 05/23/20 24 05/23/2024 drug scree n, urine MDMA negati ve Not Available [address], [address], 05/23/2024 15:47:13 05/23/20 24 05/23/2024 drug scree n, urine JAELYN negati ve Not Available [address], [address], 05/23/2024 15:47:13 05/23/20 24 05/23/2024 drug scree n, urine PCP negati ve Not Available [address], [address], 05/23/2024 15:47:13 05/23/20 24 05/23/2024 drug scree n, urine MET negati ve Not Available [address], [address], 05/23/2024 15:47:13 06/13/20 24 06/14/2024 TSH+F REE T4 TSH 2.220 uIU/m L 0.450- 4.500 normal Not Available [facility] ([facility]) [address] [facility], [place], [address], 06/14/2024 12:09:03 06/13/20 24 06/14/2024 TSH+F REE T4 T4,free(dire ct) 0.98 NG/dL 0.82-1 .77 normal Not Available [facility] ([facility]) [address] [facility], [place], [address], 06/14/2024 12:09:03 06/13/20 24 06/14/2024 COMP. METAB OLIC PANEL (14) glucose 86 mg/dL 70-99 normal Not Available [facility] ([facility]) [address] [facility], [place], [address], 06/14/2024 12:09:03 06/13/2006/14/2024 COMP. METAB OLIC PANEL (14) BUN 15 mg/dL 6-24 normal Not Available [facility] ([facility]) [address] [facility], [place], [address], 06/14/2024 12:09:03 06/13/2006/14/2024 COMP. METAB OLIC PANEL (14) creatinine 0.76 mg/dL 0.57-1 .00 normal Not Available [facility] ([facility]) [address] [facility], [place], [address], 06/14/2024 12:09:03 06/13/20 24 06/14/2024 COMP. METAB OLIC PANEL (14) eGFR 99 mL/mi n/1.7 3 >59 normal Not Available [facility] ([facility]) [address] [facility], [place], [address], 06/14/2024 12:09:03 06/13/2006/14/2024 COMP. METAB OLIC PANEL (14) BUN/creatini ne ratio 20 -23 normal Not Available [facility] ([facility]) [address] [facility], [place], [address], 06/14/2024 12:09:03 06/13/2006/14/2024 COMP. METAB OLIC PANEL (14) sodium 137 mmol/ L 134-14 4 normal Not Available [facility] ([facility]) [address] [facility] [place], [address], 06/14/2024 12:09:03 06/13/20 24 06/14/2024 COMP. METAB OLIC PANEL (14) potassium 4.0 mmol/ L 3.5-5. 2 normal Not Available [facility] ([facility]) [address] [facility] [place], [address], 06/14/2024 12:09:03 06/13/2006/14/2024 COMP. METAB OLIC PANEL (14) chloride 103 mmol/ L 96-106 normal Not Available [facility] ([facility]) [address] [facility] [place], [address], 06/14/2024 12:09:03 06/13/2006/14/2024 COMP. METAB OLIC PANEL (14) carbon dioxide, total 16 mmol/ L 20-29 below low normal Not Available [facility] ([facility]) [address] [facility] [place], [address], 06/14/2024 12:09:03 06/13/20 24 06/14/2024 COMP. METAB OLIC PANEL (14) calcium 9.7 mg/dL 8.7-10 .2 normal Not Available [facility] ([facility]) [address] [facility] [place], [address], 06/14/2024 12:09:03 06/13/20 24 06/14/2024 COMP. METAB OLIC PANEL (14) protein, total 7.6 g/dL 6.0-8. 5 normal Not Available [facility] ([facility]) [address] [facility] [place], [address], 06/14/2024 12:09:03 06/13/20 24 06/14/2024 COMP. METAB OLIC PANEL (14) albumin 4.7 g/dL 3.9-4. 9 normal Not Available [facility] ([facility]) [address] [facility] [place], [address], 06/14/2024 12:09:03 06/13/20 24 06/14/2024 COMP. METAB OLIC PANEL (14) globulin, total 2.9 g/dL 1.5-4. 5 Not Available [facility] ([facility]) [address] [facility] [place], [address], 06/14/2024 12:09:03 06/13/20 24 06/14/2024 COMP. METAB OLIC PANEL (14) bilirubin, total 0.3 mg/dL 0.0-1. 2 normal Not Available [facility] ([facility]) [address] [facility] [place], [address], 06/14/2024 12:09:03 06/13/20 24 06/14/2024 COMP. METAB OLIC PANEL (14) alkaline phosphatase 80 IU/L 44-121 normal Not Available [facility] ([facility]) [address] [facility] [place], [address], 06/14/2024 12:09:03 06/13/20 24 06/14/2024 COMP. METAB OLIC PANEL (14) AST (SGOT) 14 IU/L 0-40 normal Not Available [facility] ([facility]) [address] [facility] [place], [address], 06/14/2024 12:09:03 06/13/20 24 06/14/2024 COMP. METAB OLIC PANEL (14) ALT (SGPT) 14 IU/L 0-32 normal Not Available [facility] ([facility]) [address] [facility] [place], [address], 06/14/2024 12:09:03 06/13/20 24 06/14/2024 LIPID PANEL cholesterol, total 209 mg/dL 100-19 9 above high normal Not Available [facility] ([facility]) [address] [facility], [place], [address], 06/14/2024 12:09:03 06/13/20 24 06/14/2024 LIPID PANEL triglyceride s 112 mg/dL 0-149 normal Not Available [facility] ([facility]) [address] [facility] [place], [address], 06/14/2024 12:09:03 06/13/2006/14/2024 LIPID PANEL HDL cholesterol 72 mg/dL >39 normal Not Available [facility] ([facility]) [address] [facility] [place], [address], 06/14/2024 12:09:03 06/13/2006/14/2024 LIPID PANEL VLDL cholesterol dane 20 mg/dL 5-40 Not Available [facility] ([facility]) [address] [facility] [place], [address], 06/14/2024 12:09:03 06/13/20 24 06/14/2024 LIPID PANEL LDL chol calc (rust) 117 mg/dL 0-99 above high normal Not Available [facility] ([facility]) [address] [place], [address], 06/14/2024 12:09:03 06/13/20 24 06/14/2024 LIPID PANEL LDL calc comment: BUSINESS PROPOSAL REP Not Available [facility] ([facility]) [address] [facility], [place], [address], 06/14/2024 12:09:03 06/13/20 24 06/14/2024 HEMOG LOBIN A1C hemoglobin A1C 5.3 % 4.8-5. 6 normal Predi abete s: 5.7 - 6.4 Diabe angella: >6.4 Glyce rose contr ol for adult s with diabe angella: <7.0 Not Available [facility] ([facility]) [address] [place], [address], 06/14/2024 12:09:04 02/06/20 25 09/29/2024 rapid flu (A+B) Flu negati ve Not Available [address], [address], 09/29/2024 08:57:36 09/29/19 25 09/29/2024 rapid flu (A+B) Type Both A & B Not Available [address], [address], 09/29/2024 08:57:36 09/29/19 25 09/29/2024 rapid SARS CoV + SARS CoV 2 Ag, QL [place], respi rator y speci men SARS CoV antigen Negati ve Not Available [address], [address], 09/29/2024 08:57:29 09/29/19 25 09/29/2024 rapid strep group A, throa t Strep negati ve Not Available [address], [address], 09/29/2024 08:56:31 09/29/19 25 09/29/2024 rapid strep group A, throa t Culture No Not Available [address], [address], 09/29/2024 08:56:31 11/12/19 25 11/10/2024 CT, abdom en + pelvi s, w/ contr ast No observ ation record ed. [facility] [address], [place], [address], 11/11/2024 10:27:53 11/12/19 25 11/10/2024 elect jay plasenciagr am No observ ation record ed. [facility] [address], [place], [address], 11/11/2024 10:27:54 11/24/19 25 11/23/2024 US, liannealex emeli r No observ ation record ed. [facility] [address], [place], [address], 11/24/2024 08:35:45 02/01/20 25 01/26/2025 MAMMO , scree margret, tomos ynthe sis, bilat eral No observ ation record ed. [facility] [address], [place], [address], 01/31/2025 15:28:41 Result Notes None recorded. 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 Procedures Surgical History Date Name Laterality Status Provider Name and Address Organization Details Recorded Time 01/27/20 Date of Last Mammogram completed Cyn Stears [place] - [facility] 01/31/2025 10:30:56 12/02/19 Hysterectomy completed Shanna Guido [place] - [facility] 12/12/2022 14:12:04 Imaging Results None recorded. Procedure Notes None recorded. Medical Equipment None Reported. Allergies Allergen ID Allergen Name Allergen Category Reaction Reaction Severity Criticality Documentation Date Start Date Code Code System Note Provider Name and Address Organization Details Recorded Time 251135 Product containin g penicilli n (product) medicatio n rash moderate high 12/12/2022 34964 8001 SNOMED Shanna wright, [place] - [facility] 3 14:12:25 Medications Name Sig Start Date Stop Date Status Note LastModified by Organization Details LastModified Time ondansetron HCl 4 mg tablet active Not Available Not Available Not Available phentermine 37.5 mg tablet TAKE 1 TABLET BY MOUTH ONCE DAILY 09/29 completed Not Available Not Available Not Available oseltamivir 75 mg capsule TAKE 1 CAPSULE BY MOUTH TWICE DAILY FOR 5 DAYS active Not Available Not Available No t Available duloxetine 30 mg capsule,del ayed release TAKE 1 CAPSULE BY MOUTH ONCE DAILY active Not Available Not Available No t Available Saxenda 3 mg/0.5 mL (18 mg/3 mL) subcutaneou s pen injector Inject 0.6 mg every day by subcutane ous route. 11/19 completed Not Available Not Available Not Available Ozempic 0.25 mg or 0.5 mg (2 mg/1.5 mL) subcutaneou s pen injector Inject 0.25 mg every week by subcutane ous route. 09/29 completed Not Available Not Available Not Available Wegovy 1.7 mg/0.75 mL subcutaneou s pen injector Inject 1.7 mg under the skin once weekly. 07/06 completed Not Available Not Available Not Available Wegovy 0.25 mg/0.5 mL subcutaneou s pen injector Inject 0.25 mg every week by subcutane ous route. 09/29 completed Not Available Not Available Not Available Wegovy 0.5 mg/0.5 mL subcutaneou s pen injector 11/19 completed Not Available Not Available Not Available Zepbound 5 mg/0.5 mL subcutaneou s pen injector 09/29 completed Not Available Not Available Not Available Zepbound 2.5 mg/0.5 mL subcutaneou s pen injector INJECT 1 SYRINGE SUBCUTANE OUSLY ONCE A WEEK active Not Available Not Available No t Available Vitals Date Recorded Body height Body mass index (BMI) Body weight Body temperature Heart rate Respiratory rate Oxygen saturation Oxygen saturation in Arterial blood by Pulse oximetry Systolic blood pressure Diastolic blood pressure Provider Name and Address Organization Details Last Updated DateTime 02/06/202 5 157.48 cm 29.1 kg/m2 90163.1 9 g 100.9 [degF] 120 /min 18 /min 97 % 97 % 126 mm[Hg] 82 mm[Hg] Cynbaldomero Doshis [place] - [facility] 5 08:54:58 Date Recorded Body mass index (BMI) Body weight Provider Name and Address Organization Details Last Updated DateTime 11/20/2023 30.1 kg/m2 69712.95 g Lester Loc, [employer] [address], [place], [address], [place] - [facility] 11/20/2023 10:50:14 Date Recorded Body height Body temperature Heart rate Oxygen saturation Oxygen saturation in Arterial blood by Pulse oximetry Respiratory rate Systolic blood pressure Diastolic blood pressure Provider Name and Address Organization Details Last Updated DateTime 4 157.48 cm 98 [degF] 93 /min 99 % 99 % 18 /min 118 mm[Hg] 78 mm[Hg] Shanna Guido [place] - [facility] 4 10:38:59 Date Recorded Body height Body mass index (BMI) Body weight Body temperature Heart rate Oxygen saturation Oxygen saturation in Arterial blood by Pulse oximetry Respiratory rate Systolic blood pressure Diastolic blood pressure Provider Name and Address Organization Details Last Updated DateTime 4 157.48 cm 31.7 kg/m2 91643.8 8 g 98.1 [degF] 93 /min 99 % 99 % 18 /min 118 mm[Hg] 78 mm[Hg] Shanna Lata [place] - [facility] 4 13:47:35 Date Recorded Body height Respiratory rate Body mass index (BMI) Body weight Heart rate Oxygen saturation Oxygen saturation in Arterial blood by Pulse oximetry Body temperature Systolic blood pressure Diastolic blood pressure Provider Name and Address Organization Details Last Updated DateTime 4 157.48 cm 18 /min 31.1 kg/m2 38668.7 g 78 /min 99 % 99 % 98.3 [degF] 114 mm[Hg] 76 mm[Hg] Cynbaldomero Doshis [place] - [facility] 4 15:22:59 Date Recorded Body height Body mass index (BMI) Body weight Heart rate Body temperature Oxygen saturation Oxygen saturation in Arterial blood by Pulse oximetry Respiratory rate Systolic blood pressure Diastolic blood pressure Provider Name and Address Organization Details Last Updated DateTime 4 157.48 cm 31.3 kg/m2 90872.7 g 74 /min 98.1 [degF] 98 % 98 % 18 /min 118 mm[Hg] 78 mm[Hg] Shanna Guido [place] - [facility] 4 08:16:48 Social History Question Answer Notes LastModified by Organizat ion Details LastModified Time Tobacco Smoking Status Never Smoker Shanna Guido null, [place] - [facility] 12/12/2022 14:15:37 Do You Have An Advance Directive? No Information n ot available 12/12/2022 Are You Blind Or Do You Have Difficulty Seeing? No Information n ot available 12/12/2022 What Is Your Level Of Caffeine Consumption? Moderate Information not available 12/12/2022 In The 14 Days Before Symptom Onset, Have You Had Close Contact With A Laboratory-confirm ed COVID-19 While That Case Was Ill? No Information n ot available 12/12/2022 In The 14 Days Before Symptom Onset, Have You Had Close Contact With A Person Who Is Under Investigation For COVID-19 While That Person Was Ill? No Information not available 12/12/2022 Have You Been To An Area Known To Be High Risk For COVID-19? No Information not available 12/12/2022 Are You Deaf Or Do You Have Serious Difficulty Hearing? No Information not available 12/12/2022 What Type Of Diet Are You Following? REGULAR Information n ot available 12/12/2022 Have You Processed Blood Or Body Fluids From An Ebola Virus Disease Patient Without Appropriate PPE? No Information not available 12/12/2022 Do You Reside In Or Have You Traveled To An Area Where Ebola Virus Transmission Is Active? No Information not available 12/12/2022 What Is The Highest Grade Or Level Of School You Have Completed Or The Highest Degree You Have Received? [id number] Information not available 12/12/2022 Have There Been Any Changes To Your Family Or Social Situation? No Information no t available 12/12/2022 What Is The Fluoride Status Of Your Home? Fluoridated Information not available 12/12/2022 Have You Recently Or Are You Planning To Travel To An Area With Zika Virus? No Information not available 12/12/2022 Do You Have A Medical Power Of [employer]? No Information not available 12/12/2022 What Was The Date Of Your Most Recent Tobacco Screening? 04/21/2024 Information not available 04/21/2024 What Is Your Relationship Status? Information not available 12/12/2022 Do You Have Smoke And Carbon Monoxide Detectors In Your Home? Yes Information not available 12/12/2022 Are You Passively Exposed To Smoke? No Information no t available 12/12/2022 Has Tobacco Cessation Counseling Been Provided? No Information not available 12/12/2022 Do You Have Difficulty Walking Or Climbing Stairs? No Information not available 12/12/2022 Sex: Female Functional Status Question Answer Note LastModified by Organizat ion Details LastModified Time Do you use any illicit or recreational drugs? No Information not available 12/12/2022 Do you or have you ever used any other forms of tobacco or nicotine? No Information not available 12/12/2022 What is your level of alcohol consumption? None Information not available 12/12/2022 Are you currently employed? Yes Information not available 12/12/2022 Do you have transportation difficulties? No Information not available 12/12/2022 Are you able to walk? YESWOREST Information not available 12/12/2022 Do you have difficulty doing errands alone? No Information not available 12/12/2022 Are you able to care for yourself? 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 No Information not available 12/12/2022 What is your exercise level? Occasional Information not available 12/12/2022 Mental Status Question Answer Note LastModified by Organizat ion Details LastModified Time Do you feel stressed (tense, restless, nervous, or anxious, or unable to sleep at night)? [id number] bstears Information not available 07/02/2023 Do you have difficulty concentrating, remembering or making decisions? No Information no t available 12/12/2022 Family History Relationship Description Onset Age of this Age Resolved Age Notes LastModified by Organization Details LastModified Time Sister Malignant tumor of breast nacho Not available 2022 14:14:53 Unspecified Relation Malignant tumor of breast cousin nacho Not available 2022 14:15:13 Medical History No medical history recorded. Gynecological History Statement/Question Response Menses Monthly N Abnormal Pap N Date of Last Pap Smear Date of Last Mammogram 01/26/2025 LMP Unknown Sexually Active? Y Obstetrics History GPAL:G 3 P 3 0 0 3 Type Value Multiple Births 0 Full Term 3 Induced 0 Spontaneous 0 Premature 0 Living 3 Ectopics 0 Total 3 Immunizations Vaccine Type Date Status Note Provider Nam e and Address Organization Details Recorded Time Influenza, split virus, quadrivalent, preservative 0 completed Shanna Guido null, [place] - [facility] 12/12/2022 14:34:37 COVID-19, mRNA, LNP-S, PF, 100 mcg/0.5mL dose or 50 mcg/0.25mL dose 1 completed Shanna Augustler null, [place] - [facility] 12/12/2022 14:34:38 COVID-19, mRNA, LNP-S, PF, 100 mcg/0.5mL dose or 50 mcg/0.25mL dose 2 completed Shanna Augustler null, [place] - [facility] 12/12/2022 14:34:38 COVID-19, mRNA, LNP-S, PF, 100 mcg/0.5mL dose or 50 mcg/0.25mL dose 1 completed Shanna Guido null, [place] - [facility] 12/12/2022 14:34:38 Hep B, adult 2 completed Shanna Lata [place] [facility] 12/12/2022 14:34:38 Hep B, adult 1 completed Shanna Gu[place] [facility] 12/12/2022 14:34:38 Hep B, adult 1 completed Shanna Guido null[place] [facility] 12/12/2022 14:34:38 Past Encounters Encounter ID Performer Location Encounter Start Date Encounter Closed Date Diagnosis/Indication Diagnosis SNOMED-CT Code Diagnosis ICD10 Code Diagnosis Note [id number] Letser Monterroso [address] [address] 12/12/2022 13:58:42 12/12/2022 14:37:55 Body mass index 30+ - obesity 388478754 Z68.30 due to trunk obesity and hx of gestationa l dm she is at risk for heart dz [id number] Lester Monterroso [address] [address] 07/02/2023 15:36:11 07/02/2023 16:04:07 Body mass index 30+ - obesity 758506211 Z68.31 31.6 Obesity 350698931 E66.9 [id number] Lester Monterroso [address] [address] 07/07/2023 09:40:21 07/07/2023 10:02:00 Central obesity 839496616 E66.8 Body mass index 30+ - obesity 838548280 Z68.31 31.9Pt compliant with plan of careKasper reviewed and appropriat emedicatio n compliance discussedL ast uds:Control substance agreement on fileadipex form on file Obesity 298267203 E66.9 Long-term drug therapy 931463658 Z79.915 [id number] Lester Monterroso [address] [address] 08/06/2023 10:22:00 08/06/2023 10:46:03 Body mass index 30+ - obesity 160291457 Z68.31 31.9Pt compliant with plan of careKasper reviewed and appropriat emedicatio n compliance discussedL ast uds:Control substance agreement on fileadipex form on file [id number] Lester Monterroso [address] [address] 09/01/2023 09:34:58 09/01/2023 10:29:57 Body mass index 30+ - obesity 991696972 Z68.31 bmi 30.1Pt compliant with plan of careKasper reviewed and appropriat emedicatio n compliance discussedL ast uds:Control substance agreement on fileadipex form on filedrug holiday next monthmedic ation discussed with pt and possible side effects and risk [id number] Lester Monterroso [address] [address] 11/20/2023 10:18:12 11/20/2023 10:48:35 Central obesity 048785314 E66.8 Body mass index 30+ - obesity 688243845 Z68.31 bmi 30.1Pt compliant with plan of careKasper reviewed and appropriat emedicatio n compliance discussedL ast uds:Control substance agreement on fileadipex form on filemedica tion discussed with pt and possible side effects and riskdiscus sed with pt she would only quilify for 1 monthlow fat/carb/c alorie diet and exercise plan [id number] Lester Monterroso [address] [address] 04/21/2024 13:34:03 04/21/2024 14:36:20 Central obesity 054688491 E66.8 Body mass index 30+ - obesity 929467005 Z68.31 bmi 31.7Pt compliant with plan of careKasper reviewed and appropriat emedicatio n compliance discussedL ast uds:Control substance agreement on fileadipex form on filemedica tion discussed with pt and possible side effects and risklow fat/carb/c alorie diet and exercise plan Obesity [id number] E66.9 [id number] Lester Monterroso [address] [id number] 05/23/2024 15:15:37 05/23/2024 15:54:39 Central obesity [id number] E66.8 Body mass index 30+ - obesity [id number] Z68.31 bmi 31.1Pt compliant with plan of careGerman reviewed and appropriat emedicatio n compliance discussedL ast uds: 4Control substance agreement on fileadipex form on filemedica tion discussed with pt and possible side effects and risklow fat/carb/c alorie diet and exercise plan Long-term drug therapy [id number] Z79.345 [id number] Lester Monterroso [address] [address] 06/13/2024 07:59:20 06/13/2024 09:34:56 Central obesity [id number] E66.839 [id number] Luistammy Monterroso [address] [address] 09/29/2024 08:38:23 09/29/2024 09:32:11 Influenza-like illness [id number] B34.9 no sign of a bacterial infection. likely viral. viruses can take 7-14 days to run their course. nasal saline and bulb syringe to remove nasal drainage to help with congestion . monitor temp. Tylenol or Motrin as needed for pain or fever. encourage fluids, water, Gatorade, power aide, Pedialyte if infant/tod dler/child warm salt water gargles warm fluids sore throat lozenges sleep elevated humidifier /vaporizer follow up immediatel y for new or worsening symptoms or no noticeable improvemen t over the next 48-72 hours Health Concerns Section Related Observation LastModified by Organization Detai ls LastModified Time None Recorded Concern Status LastModified by Organization Details LastModified Time None Recorded Advance Directives Directive N: Payers Insurance Date Sequence Insurance Name Policy Number Policy Meeks Covered Member ID Meeks Member ID Guarantor Name 11/06/2024 1 [id number] (PPO) [id number] Mayda Valenzuela [id number] Mayda Valenzuela Notes Date Note Type Note Provider Name and Address Organization Details Recorded Time 11/20/2023 text/html 43 yr old female presents for a weight loss follow up. pt states she has been off adipex waiting for wegovy to be approved. pt states she is exercising and dieting without success Lester MonterrosoANNITA [address], [place], [phone], [place] - [facility] 11/20/2023 10:54:17 04/21/2024 text/html 43 yr old female presents for weight loss follow up. pt states she has been on adipex in the past and tolerated it well. pt states she has been dieting and exercising but still not successful. Lester BaezANNITA ochoa [address], [place], [id number], [place] - [facility] 04/21/2024 14:27:13 05/23/2024 text/html 43 year old female who presents to the office today for a follow up onweight loss- Today in the office she weighs 170 lbsAt her last appt on 04-21-24 she weighed 173 lbs - pt states doing well on meds no issues 43 year old female who presents to the office today for a follow up on weight loss. Today in the office she weighs 170 lbs, her last appt on 04-21-24 she weighed 173 lbs. Lester BaezANNITA ochoa [address], [place], [id number], [place] - [facility] 05/23/2024 15:59:35 06/13/2024 text/html 44 yr old female presents for lab work related to weight management program through [facility] pharmacy. Luistammy ANNITA ochoa [address], [place], [id number], [place] - [facility] 06/13/2024 08:47:45 09/29/2024 text/html 44 year old female who presents to the office today with concerns of fever, chest congestion, bilateral ear/neck pain, body aches, sore throat that started last pm Luisminoobaldomero BaezANNITA ochoa [address], [place], [id number], [place] - [facility] 09/29/2024 09:32:07 OBGyn Episode No OBEpisode recorded.
--- NOTE | 2025-02-03 15:00 | US_ITS ---
PROCEDURE INFORMATION: Exam: US Left Breast, Complete Exam date and time: 02/03/2025 2:41 PM Age: 44 years old Clinical indication: Recall on the basis of screening mammogram 01/26/2025 for further evaluation of a 0.4 cm oval circumscribed mass in the left upper inner quadrant, 3 cm from the nipple. TECHNIQUE: Imaging protocol: Complete ultrasound of all four quadrants of the left breast and the retroareolar regions, including ultrasound of the axilla when performed. COMPARISON: MG MM DIG SCREENING MAMM BI W/CAD 01/26/2025 1:03 PM US BREAST LT COMPLETE 10/08/2022 12:24 PM FINDINGS: ULTRASOUND: Breast ultrasound findings: Left sonography, all 4 quadrants, retroareolar and the axilla. At 11 o'clock 3 cm from the nipple, oval hypoechoic, slightly heterogeneous, avascular mass measuring 0.5 x 0.4 x 0.4 cm, with related slightly dilated duct, which is the likely correlate of the recalled mammographic finding. No other sonographic findings demonstrated. Sonographically unremarkable axillary lymph node. IMPRESSION: Suggest ultrasound guided biopsy of indeterminate hypoechoic mass on the left at 11 o'clock which is the likely correlate of the recalled mammographic finding. Advise correlation to ensure that sonographically placed clip corresponds to the mammographic mass. ASSESSMENT: BI-RADS Category 4: Suspicious.
== END 2025-02-03 23:59 | disposition home or self-care (01) ==
LOC: RAD 14:45
PROVIDERS: PCP Nurse Practitioner Family; Visit Provider Nurse Practitioner Obstetrics & Gynecology
DX: R92.8 Other abnormal and inconclusive findings on diagnostic imaging of breast (principal); N63.20 Unspecified lump in the left breast, unspecified quadrant; Z80.3 Family history of malignant neoplasm of breast
CPT/HCPCS: 76641

== ENCOUNTER 2025-02-28 07:23 | Outpatient (CLI) | payer BC, SELFPAY ==
--- OUTSIDE RECORDS SUMMARY | 2025-02-28 07:26 | XMS_ITS | Data Portability ---
Author Organization [facility] Address [address] [place] [address] Care Team Providers Care Hand Mica Plate Layer Name Role Phone LESTER MONTERROSO Primary Care Provider [phone] Assessment No assessment recorded. Plan of Treatment Reminders Order Date Submit Date Provider Last Modified By Organization Details Last Modified Time Details Appointments None recorded. Lab rapid strep group A, throat 2024 025 [facility], [address] [place] [address], [phone], 5 09:31:18 rapid SARS CoV + SARS CoV 2 Ag, QL IA, respiratory specimen 2024 025 [facility], [address] [place] [address], [id number], 5 09:31:18 rapid flu (A+B) 2024 025 [facility], [address] [place] [address], [phone], 5 09:31:18 TSH + free T4, serum 2023 024 [facility], [address], Adi [address], [place], [address], 4 12:09:03 HbA1c (hemoglobin A1c), blood 2023 024 [facility], [address], [place] [address], [place], [address], 4 12:09:04 CMP, serum or plasma 2023 024 [facility], [address], [place] [address], [place], [address], 4 12:09:03 lipid panel, serum 2023 024 [facility], [address], [place] [address], [place], [address], 4 12:09:03 drug screen, urine 2023 [facility], [address] [place], [address], 16:38:05 Referral None recorded. Procedures None recorded. Surgeries None recorded. Imaging None recorded. Medication Orders Tamiflu 75 mg capsule 2024 025 [facility], [address] [place], [address], 5 09:31:23 phentermine 37.5 mg tablet 2023 024 [facility], [address] [place] [address], [address], 5 08:55:19 phentermine 37.5 mg tablet 2023 024 [facility], [address] [place], [address], 5 08:55:19 phentermine 37.5 mg tablet 2023 024 [facility], [address] [place], [address], 08:55:19 Patient TargetsNo targets recorded. Patient Instructions Encounter Date Encounter Id Patient Instructions Last Modified By Organization Details Last Modified Time 04/21/2024 [id number] learning about healthy weight efryman Not available 04/21/2024 14:26:50 body mass index: care instructions efryman Not available 04/21/2024 14:26:50 Reason for Referral None Reported. Results Created Date Observation Date Name Description Value Unit Range Abnormal Flag Note LastModifiedBy Organization Detail LastModifiedTime 05/23/20 24 05/23/2024 drug scree n, urine THC negati ve Not Available [address], [address], 05/23/2024 15:47:13 05/23/20 24 05/23/2024 drug scree n, urine TCA negati ve Not Available [address], [address], 05/23/2024 15:47:13 05/23/20 24 05/23/2024 drug scree n, urine BAR negati ve Not Available [address], [address], 05/23/2024 15:47:13 05/23/20 24 05/23/2024 drug scree n, urine BZO negati ve Not Available [address], [address], 05/23/2024 15:47:13 05/23/20 24 05/23/2024 drug scree n, urine MTD negati ve Not Available [address], [address], 05/23/2024 15:47:13 05/23/20 24 05/23/2024 drug scree n, urine AMP positi ve Not Available [address], [address], 05/23/2024 15:47:13 05/23/20 24 05/23/2024 drug scree n, urine MOP negati ve Not Available [address], [address], 05/23/2024 15:47:13 05/23/20 24 05/23/2024 drug scree n, urine OXY negati ve Not Available [address], [address], 05/23/2024 15:47:13 05/23/20 24 05/23/2024 drug scree n, urine MDMA negati ve Not Available [address], [address], 05/23/2024 15:47:13 05/23/20 24 05/23/2024 drug scree n, urine JAELYN negati ve Not Available [address], [address], 05/23/2024 15:47:13 05/23/20 24 05/23/2024 drug scree n, urine PCP negati ve Not Available [address], [address], 05/23/2024 15:47:13 05/23/20 24 05/23/2024 drug scree n, urine MET negati ve Not Available [address], [address], 05/23/2024 15:47:13 06/13/20 24 06/14/2024 TSH+F REE T4 TSH 2.220 uIU/m L 0.450- 4.500 normal Not Available [facility] ([facility]) [address] [facility], [place], [address], 06/14/2024 12:09:03 06/13/20 24 06/14/2024 TSH+F REE T4 T4,free(dire ct) 0.98 NG/dL 0.82-1 .77 normal Not Available [facility] ([facility]) [address] [facility], [place], [address], 06/14/2024 12:09:03 06/13/20 24 06/14/2024 COMP. METAB OLIC PANEL (14) glucose 86 mg/dL 70-99 normal Not Available [facility] ([facility]) [address] [place], [address], 06/14/2024 12:09:03 06/13/2006/14/2024 COMP. METAB OLIC PANEL (14) BUN 15 mg/dL 6-24 normal Not Available [facility] ([facility]) [address] [place], [address], 06/14/2024 12:09:03 06/13/20 24 06/14/2024 COMP. METAB OLIC PANEL (14) creatinine 0.76 mg/dL 0.57-1 .00 normal Not Available [facility] ([facility]) [address] [facility], [place], [address], 06/14/2024 12:09:03 06/13/20 24 06/14/2024 COMP. METAB OLIC PANEL (14) eGFR 99 mL/mi n/1.7 3 >59 normal Not Available [facility] ([facility]) [address] [place], [address], 06/14/2024 12:09:03 06/13/2006/14/2024 COMP. METAB OLIC PANEL (14) BUN/creatini ne ratio 20 9-23 normal Not Available [facility] ([facility]) [address] [place], [address], 06/14/2024 12:09:03 06/13/20 24 06/14/2024 COMP. METAB OLIC PANEL (14) sodium 137 mmol/ L 134-14 4 normal Not Available [facility] ([facility]) [address] [place], [address], 06/14/2024 12:09:03 06/13/20 24 06/14/2024 COMP. METAB OLIC PANEL (14) potassium 4.0 mmol/ L 3.5-5. 2 normal Not Available [facility] ([facility]) [address] [place], [address], 06/14/2024 12:09:03 06/13/2006/14/2024 COMP. METAB OLIC PANEL (14) chloride 103 mmol/ L 96-106 normal Not Available [facility] ([facility]) [address] [place], [address], 06/14/2024 12:09:03 06/13/2006/14/2024 COMP. METAB OLIC PANEL (14) carbon dioxide, total 16 mmol/ L 20-29 below low normal Not Available [facility] ([facility]) [address] [place], [address], 06/14/2024 12:09:03 06/13/20 24 06/14/2024 COMP. METAB OLIC PANEL (14) calcium 9.7 mg/dL 8.7-10 .2 normal Not Available [facility] ([facility]) [address] [place], [address], 06/14/2024 12:09:03 06/13/20 24 06/14/2024 COMP. METAB OLIC PANEL (14) protein, total 7.6 g/dL 6.0-8. 5 normal Not Available [facility] ([facility]) [address] [place], [address], 06/14/2024 12:09:03 06/13/20 24 06/14/2024 COMP. METAB OLIC PANEL (14) albumin 4.7 g/dL 3.9-4. 9 normal Not Available [facility] ([facility]) [address] [place], [address], 06/14/2024 12:09:03 06/13/20 24 06/14/2024 COMP. METAB OLIC PANEL (14) globulin, total 2.9 g/dL 1.5-4. 5 Not Available [facility] ([facility]) [address] [place], [address], 06/14/2024 12:09:03 06/13/20 24 06/14/2024 COMP. METAB OLIC PANEL (14) bilirubin, total 0.3 mg/dL 0.0-1. 2 normal Not Available [facility] ([facility]) [address] [place], [address], 06/14/2024 12:09:03 06/13/20 24 06/14/2024 COMP. METAB OLIC PANEL (14) alkaline phosphatase 80 IU/L 44-121 normal Not Available [facility] ([facility]) [address] [place], [address], 06/14/2024 12:09:03 06/13/20 24 06/14/2024 COMP. METAB OLIC PANEL (14) AST (SGOT) 14 IU/L 0-40 normal Not Available [facility] ([facility]) [address] [place], [address], 06/14/2024 12:09:03 06/13/20 24 06/14/2024 COMP. METAB OLIC PANEL (14) ALT (SGPT) 14 IU/L 0-32 normal Not Available [facility] ([facility]) [address] [place], [address], 06/14/2024 12:09:03 06/13/20 24 06/14/2024 LIPID PANEL cholesterol, total 209 mg/dL 100-19 9 above high normal Not Available [facility] ([facility]) [address] [place], [address], 06/14/2024 12:09:03 06/13/2006/14/2024 LIPID PANEL triglyceride s 112 mg/dL 0-149 normal Not Available [facility] ([facility]) [address] [place], [address], 06/14/2024 12:09:03 06/13/2006/14/2024 LIPID PANEL HDL cholesterol 72 mg/dL >39 normal Not Available [facility] ([facility]) [address] [place], [address], 06/14/2024 12:09:03 06/13/2006/14/2024 LIPID PANEL VLDL cholesterol dane 20 mg/dL 5-40 Not Available [facility] ([facility]) [address] [place], [address], 06/14/2024 12:09:03 06/13/2006/14/2024 LIPID PANEL LDL chol calc ([facility] [place]) 117 mg/dL 0-99 above high normal Not Available [facility] ([facility]) [address] 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) [address] [place], [address], 06/14/2024 12:09:03 06/13/2006/14/2024 HEMOG LOBIN A1C hemoglobin A1C 5.3 % 4.8-5. 6 normal Predi abete s: 5.7 - 6.4 Diabe angella: >6.4 Glyce rose contr ol for adult s with diabe angella: <7.0 Not Available [facility] ([facility]) [address] [place], [address], 06/14/2024 12:09:04 09/29/19 25 09/29/2024 rapid flu (A+B) Flu negati ve Not Available [address], [address], 09/29/2024 08:57:36 09/29/19 25 09/29/2024 rapid flu (A+B) Type Both A & B Not Available [address], [address], 09/29/2024 08:57:36 09/29/19 25 09/29/2024 rapid SARS CoV + SARS CoV 2 Ag, QL IA, respi rator y speci men SARS CoV antigen Negati ve Not Available [address], [address], 09/29/2024 08:57:29 09/29/19 25 09/29/2024 rapid strep group A, throa t Strep negati ve Not Available [address], [address], 09/29/2024 08:56:31 09/29/19 25 09/29/2024 rapid strep group A, throa t Culture No Not Available [address], [address], 09/29/2024 08:56:31 11/12/19 25 11/10/2024 CT, abdom en + pelvi s, w/ contr ast No observ ation record ed. [facility] [address], [place], [address], 11/11/2024 10:27:53 11/12/19 25 11/10/2024 elect jay plasenciagr am No observ ation record ed. [facility] [address], [place], [address], 11/11/2024 10:27:54 11/24/19 25 11/23/2024 US, xuan sianz r No observ ation record ed. [facility] [address], [place], [address], 11/24/2024 08:35:45 02/01/20 25 01/26/2025 MAMMO , scree margret, tomos ynthe sis, bilat eral No observ ation record ed. [facility] [address], [place], [place], [address], 01/31/2025 15:28:41 02/09/20 25 02/03/2025 US, breas t, unila teral No observ ation record ed. [facility] [address], [place], [address], 02/09/2025 08:28:14 02/09/20 25 02/03/2025 US, breas t, unila teral No observ ation record ed. [facility] [address], [place], [address], 02/09/2025 11:28:56 Result Notes None recorded. 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 Procedures Surgical History Date Name Laterality Status Provider Name and Address Organization Details Recorded Time 01/27/20 Date of Last Mammogram completed Cyn Damon [place] - [facility] 01/31/2025 10:30:56 12/02/19 Hysterectomy completed Shanna Guido [place] - [facility] 12/12/2022 14:12:04 Imaging Results None recorded. Procedure Notes None recorded. Medical Equipment None Reported. Allergies Allergen ID Allergen Name Allergen Category Reaction Reaction Severity Criticality Documentation Date Start Date Code Code System Note Provider Name and Address Organization Details Recorded Time 471638 Product containin g penicilli n (product) medicatio n rash moderate high 12/12/2022 86857 8001 SNOMED Shanna Guido null, [place] - [facility] 14:12:25 Medications Name Sig Start Date Stop [...] in Arterial blood by Pulse oximetry Systolic And Diastolic Provider Name and Address Organization Details Last Updated DateTime 5 157.48 cm 29.1 kg/m2 06304.1 9 g 100.9 [degF] 120 /min 18 /min 97 % 97 % 126/82 mm[Hg] Cyn Doshis [place] - [facility] 5 08:54:58 Date Recorded Body mass index (BMI) Body weight Provider Name and Address Organization Details Last Updated DateTime 11/20/2023 30.1 kg/m2 18727.95 g Lester Monterroso, [employer] [address], [place], [address], [place] - [facility] 11/20/2023 10:50:14 Date Recorded Body height Body temperature Heart rate Oxygen saturation Oxygen saturation in Arterial blood by Pulse oximetry Respiratory rate Systolic And Diastolic Provider Name and Address Organization Details Last Updated DateTime 4 157.48 cm 98 [degF] 93 /min 99 % 99 % 18 /min 118/78 mm[Hg] Shanna Guido [place] - [facility] 4 10:38:59 Date Recorded Body height Body mass index (BMI) Body weight Body temperature Heart rate Oxygen saturation Oxygen saturation in Arterial blood by Pulse oximetry Respiratory rate Systolic And Diastolic Provider Name and Address Organization Details Last Updated DateTime 4 157.48 cm 31.7 kg/m2 74441.8 8 g 98.1 [degF] 93 /min 99 % 99 % 18 /min 118/78 mm[Hg] Shanna Guido [place] - [facility] 4 13:47:35 Date Recorded Body height Respiratory rate Body mass index (BMI) Body weight Heart rate Oxygen saturation Oxygen saturation in Arterial blood by Pulse oximetry Body temperature Systolic And Diastolic Provider Name and Address Organization Details Last Updated DateTime 4 157.48 cm 18 /min 31.1 kg/m2 52158.7 g 78 /min 99 % 99 % 98.3 [degF] 114/76 mm[Hg] Cyn Jose [place] - [facility] 4 15:22:59 Date Recorded Body height Body mass index (BMI) Body weight Heart rate Body temperature Oxygen saturation Oxygen saturation in Arterial blood by Pulse oximetry Respiratory rate Systolic And Diastolic Provider Name and Address Organization Details Last Updated DateTime 4 157.48 cm 31.3 kg/m2 49170.7 g 74 /min 98.1 [degF] 98 % 98 % 18 /min 118/78 mm[Hg] Shanna Guido [place] - [facility] 4 08:16:48 Social History Question Answer Notes LastModified by Organizat ion Details LastModified Time Tobacco Smoking Status Never Smoker Shanna Guido [facility], [place] - [facility] 12/12/2022 14:15:37 Do You [...] Or The Highest Degree You Have Received? [id number] Information not available 12/12/2022 Have There Been Any Changes To Your Family Or Social Situation? No Information no t available 12/12/2022 What Is The Fluoride Status Of Your Home? Fluoridated Information not available 12/12/2022 Have You Recently Or Are You Planning To Travel To An Area With Zika Virus? No Information not available 12/12/2022 Do You Have A Medical Power Of Retail Customer Service Representative? 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 No Information not available 12/12/2022 What is your exercise level? Occasional Information not available 12/12/2022 Mental Status Question Answer Note LastModified by Organizat ion Details LastModified Time Do you feel stressed (tense, restless, nervous, or anxious, or unable to sleep at night)? [id number] bstears Information not available 07/02/2023 Do you have difficulty concentrating, remembering or making decisions? No Information no t available 12/12/2022 Family History Relationship Description Onset Age of this Age Resolved Age Notes LastModified by Organization Details LastModified Time Sister Malignant tumor of breast cbuckler Not available 2022 14:14:53 Unspecified Relation Malignant tumor of breast cousin cbuckler Not available 2022 14:15:13 Medical History No [...] Guido [place], [place] - [facility] 12/12/2022 14:34:38 COVID-19, mRNA, LNP-S, PF, 100 mcg/0.5mL dose or 50 mcg/0.25mL dose 2 completed Shanna Gu[place] null, [place] - [facility] 12/12/2022 14:34:38 COVID-19, mRNA, LNP-S, PF, 100 mcg/0.5mL dose or 50 mcg/0.25mL dose 1 completed Shannabaudilio Guido null, [place] - [facility] 12/12/2022 14:34:38 Hep B, adult 2 completed Shanna [place] [facility] 12/12/2022 14:34:38 Hep B, adult 1 completed Shanna [place] [facility] 12/12/2022 14:34:38 Hep B, adult 1 completed Shanna [place] [facility] 12/12/2022 14:34:38 Past Encounters Encounter ID Performer Location Encounter Start Date Encounter Closed Date Diagnosis/Indication Diagnosis SNOMED-CT Code Diagnosis ICD10 Code Diagnosis Note [id number] Lester Monterroso [address] [address] 12/12/2022 13:58:42 12/12/2022 14:37:55 Body mass index 30+ - obesity 886341048 Z68.30 due to trunk obesity and hx of gestationa l dm she is at risk for heart dz [id number] Lester Monterroso [address] [address] 07/02/2023 15:36:11 07/02/2023 16:04:07 Body mass index 30+ - obesity 854730201 Z68.31 31.6 Obesity 796112241 E66.9 [id number] Lester Monterroso [address] [address] 07/07/2023 09:40:21 07/07/2023 10:02:00 Central obesity 697861586 E66.8 Body mass index 30+ - obesity 483535672 Z68.31 31.9Pt compliant with plan of careGerman reviewed and appropriat emedicatio n compliance discussedL ast uds:Control substance agreement on fileadipex form on file Obesity 722834092 E66.9 Long-term drug therapy 989247392 Z79.230 [id number] Lester Monterroso [address] [address] 08/06/2023 10:22:00 08/06/2023 10:46:03 Body mass index 30+ - obesity 946037814 Z68.31 31.9Pt compliant with plan of careKasper reviewed and appropriat emedicatio n compliance discussedL ast uds:Control substance agreement on fileadipex form on file [id number] Lester Monterroso APRN [address] [address] 09/01/2023 09:34:58 09/01/2023 10:29:57 Body mass index 30+ - obesity 035328102 Z68.31 bmi 30.1Pt compliant with plan of careKasper reviewed and appropriat emedicatio n compliance discussedL ast uds:Control substance agreement on fileadipex form on filedrug holiday next monthmedic ation discussed with pt and possible side effects and risk [id number] Lester Monterroso [employer] [address] [address] 11/20/2023 10:18:12 11/20/2023 10:48:35 Central obesity 549680013 E66.8 Body mass index 30+ - obesity 925299023 Z68.31 bmi 30.1Pt compliant with plan of careKasper reviewed and appropriat emedicatio n compliance discussedL ast uds:Control substance agreement on fileadipex form on filemedica tion discussed with pt and possible side effects and riskdiscus sed with pt she would only quilify for 1 monthlow fat/carb/c alorie diet and exercise plan [id number] Lester Monterroso [employer] [address] [address] 04/21/2024 13:34:03 04/21/2024 14:36:20 Central obesity 660166250 E66.8 Body mass index 30+ - obesity 134616623 Z68.31 bmi 31.7Pt compliant with plan of careKasper reviewed and appropriat emedicatio n compliance discussedL ast uds:Control substance agreement on fileadipex form on filemedica tion discussed with pt and possible side effects and risklow fat/carb/c alorie diet and exercise plan Obesity 167800306 E66.9 [id number] Lester Monterroso [address] [address] 05/23/2024 15:15:37 05/23/2024 15:54:39 Central obesity 953544464 E66.8 Body mass index 30+ - obesity 815724143 Z68.31 bmi 31.1Pt compliant with plan of [facility] reviewed and appropriat emedicatio n compliance discussedL ast uds: 4Control substance agreement on fileadipex form on filemedica tion discussed with pt and possible side effects and risklow fat/carb/c alorie diet and exercise plan Long-term drug therapy 069653378 Z79.867 [id number] [facility] [address] [address] 06/13/2024 07:59:20 06/13/2024 09:34:56 Central obesity 644025393 E66.949 [id number] [facility] [address] 09/29/2024 08:38:23 09/29/2024 09:32:11 Influenza-like illness 41732942 B34.9 no sign of a bacterial infection. likely viral. viruses can take 7-14 days to run their course. nasal saline and bulb syringe to remove nasal drainage to help with congestion . monitor temp. Tylenol or Motrin as needed for pain or fever. encourage fluids, water, Gatorade, power aide, Pedialyte if /tod dler/child warm salt water gargles warm fluids [...] Meeks Member ID Guarantor Name 11/06/2024 1 [employer] [id number] Mayda Valenzuela [id number] 13 Mayda Valenzuela Notes Date Note Type Note Provider Name and Address Organization Details Recorded Time 11/20/2023 text/html 43 yr old female presents for a weight loss follow up. pt states she has been off adipex waiting for wegovy to be approved. pt states she is exercising and dieting without success Lester Monterroso APRN [address], [place], [address], [place] - [facility] 11/20/2023 10:54:17 04/21/2024 text/html 43 yr old female presents for weight loss follow up. pt states she has been on adipex in the past and tolerated it well. pt states she has been dieting and exercising but still not successful. Lester Monterroso APRN [address], [place], [address], [place] - [facility] 04/21/2024 14:27:13 05/23/2024 text/html [...] on 04-21-24 she weighed 173 lbs. Lester Monterroso APRN [address], [place], [address], [place] [facility] 05/23/2024 15:59:35 06/13/2024 text/html 44 yr old female presents for lab work related to weight management program through [facility] pharmacy. Lester Monterroso APRN [address], [place], [address], [place] [facility] 06/13/2024 08:47:45 09/29/2024 text/html 44 year old female who presents to the office today with concerns of fever, chest congestion, bilateral ear/neck pain, body aches, sore throat that started last pm Lester Monterroso, [employer] [address], [place], [address], [place] - [facility] 09/29/2024 09:32:07 OBGyn Episode No OBEpisode recorded.
--- NOTE | 2025-02-28 08:00 | US_ITS ---
FINAL REPORT CLINICAL HISTORY: Needs PARVEEN for abnormal mamm/breast lump -- LT BREAST LUMP -- LT BREAST BX -- MAMMOTOME -- DR DONALD CHARLES FINDINGS: ULTRASOUND-GUIDED LEFT BREAST CORE BIOPSY TECHNIQUE: Limited images were obtained to localize region of interest. The left was prepped in a routine sterile fashion and locally anesthetized with 1% lidocaine. Standard written informed consent was obtained. A 5 mm hypoechoic lesion was identified at approximately 11:00. An 11-gauge vacuum assisted hand-held device was utilized. The needle was positioned posterior to the lesion. Multiple vacuum assisted core samples were obtained. The lesion was noted to be significantly smaller following biopsy. A biopsy marker clip was deployed in satisfactory position. Postbiopsy mammogram showed postbiopsy changes with clip in satisfactory position. Procedure was well tolerated . CONCLUSION: 1. Technically successful ultrasound guided core vacuum assisted biopsy of left breast lesion as above. 2. Biopsy marker clip deployed Authenticated and ERN
--- NOTE | 2025-02-28 08:32 | MM_ITS ---
FINAL REPORT CLINICAL HISTORY: clip placement FINDINGS: MAMMOGRAM LEFT TECHNIQUE: Standard digital 2-D views COMPARISON: 01/24/2025 DENSITY: There are scattered areas of fibroglandular density FINDINGS: Post biopsy marker clip is noted to be in satisfactory position. Postbiopsy changes are noted. IMPRESSION: Biopsy marker clip in good position ASSESSMENT: A post-procedure mammogram is used to confirm the position and deployment of a breast tissue marker after a biopsy RECOMMENDATION: Pending histopathology evaluation Authenticated and ERN
== END 2025-02-28 23:59 | disposition home or self-care (01) ==
LOC: RAD 07:24
PROVIDERS: PCP Nurse Practitioner Family; Visit Provider Obstetrics & Gynecology
DX: D24.2 Benign neoplasm of left breast (principal)
CPT/HCPCS: 19083; 77065; C2618

== ENCOUNTER 2025-07-04 08:47 | Outpatient (CLI) | payer BC, SELFPAY ==
--- OUTSIDE RECORDS SUMMARY | 2025-07-04 08:50 | XMS_ITS | Patient Health Record ---
Author Organization [facility] Address [address] [place] [address] [place] Maria [id number] Care Team Providers Care Craft Demonstrator Name Role Phone Carole Platt Primary Care Provider Silvia Ulloa Unavailable [phone] Allergies Allergen (clinical drug ingredient) Drug/Non Drug Allergy documented on EMR Reaction Allergy Type Onset Date Status Penicillin Family History Drug Allergy A ctive Medications Medication SIG (Take, Route, Fr equency, Duration) Notes Start Date End Date Status Cymbalta 30 MG 1 cap(s) orally once a day; Duration: 90 days 06/07/2021 Active Adipex-P 37.5 MG 1 tab(s) orally once a day Not-Taking Immunizations Vaccine Route Administration Date Status Comme nts xFluzone Intradermal (18-64yrs)-trivalent ID Intradermal 06/07/2014 Administered xFluzone (6mos and older)-trivalent IM Intramuscular 09/09/2013 Administered Hepatitis B (20 and more) Unknown 06/16/2001 Administer ed Hepatitis B (20 and more) Unknown 07/19/2001 Administer ed Hepatitis B (20 and more) Unknown 11/22/2001 Administer ed Fluzone Quad (6months&older) IM Intramuscular 05/03/2020 Administered COVID 19 Moderna Unknown 08/29/2020 Administered COVID 19 Moderna Unknown 09/26/2020 Administered Problems Problem Type SNOMED Code ICD Code Onset Dates Problem Status W/U Status Risk Notes Problem Mixed anxiety and depressive disorder (648297022) Depression with anxiety (F41.8) Active confirmed Plan Of Treatment No Information Insurance Providers Payer Name Payer Address Payer Phone Subscriber Number Group Number Insured Name Patient Relationship to Insured Coverage Start Date Coverage End Date [facility] [address] [place] [address] [id number] GEMMA CHRIS Self - patient is the insured Medical (General) History Surgical History Surgery Date(Month/Year) tubal ligation Hospitalization History Reason Date(Month/Year) Child 06-30-12
--- OUTSIDE RECORDS SUMMARY | 2025-07-04 08:50 | XMS_ITS | Clinical Summary ---
Author Organization [facility] Address 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 Developer Name Role Phone Unavailable Primary Care Provider Unavailabl e Social History Tobacco Use Types Packs/Day Years Used Date Smoking Tobacco: Never Assessed Comments Unknown Sex and Gender Information Value Date Recorded Sex Assigned at Not on file Legal Sex Female 9:25 AM EDT Gender Identity Not on file Sexual Orientation Not on file Plan of Treatment Health Maintenance Due Date Last Done Comments Annual Wellness Exam 1983 DTaP/TDaP/Td (1 - Tdap) 1999 Cervical Cancer Screening 2001 Pap Smear 2001 HPV/Pap Cotest 2010 Breast Cancer Screening 2020 COVID-19 Vaccine (2024-2 6 season) 2025 09/12/2021, 09/26/2020, 08/29/2020 Influenza Vaccine (#1) 2025 05/03/2020 Cologuard 2025 Colon Cancer Screening 2025 Colonoscopy 2025 FIT 2025 Sigmoidoscopy 2025 Virtual Colonography 2025 Hepatitis B Vaccine Completed 11/22/2001, 07/19/2001, 06/16/2001 Meningococcal B Vaccine Aged Out No l onger eligible based on patient's age to complete this topic Pneumococcal Vaccine 0-49 Aged Out No longer eligible based on patient's age to complete this topic Procedures Procedure Name Priority Date/Time Associated Diagnosis Comments MM OUTSIDE FILMS FOR COMPARISON Routine 04/21/2025 8:40 AM EDT MM OUTSIDE FILMS FOR COMPARISON Routine 04/21/2025 8:29 AM EDT MM OUTSIDE FILMS FOR COMPARISON Routine 04/21/2025 8:26 AM EDT MM OUTSIDE FILMS FOR COMPARISON Routine 04/21/2025 8:08 AM EDT MM OUTSIDE FILMS FOR COMPARISON Routine 04/21/2025 8:08 AM EDT MM OUTSIDE FILMS FOR COMPARISON Routine 04/21/2025 8:07 AM EDT MM OUTSIDE FILMS FOR COMPARISON Routine 04/21/2025 8:06 AM EDT MM OUTSIDE FILMS FOR COMPARISON Routine 04/21/2025 8:06 AM EDT MM OUTSIDE FILMS FOR COMPARISON Routine 04/21/2025 8:02 AM EDT from Last 3 Months Results * MM OUTSIDE FILMS FOR COMPARISON (04/21/2025 8:40 AM EDT) Only the most recent of9 resultswithin the time period is included. us Unknown Provider IMG MAMMOGRAPHY ORDERABLES Jayla l Result Performing Organization Address City/State/[facility] Co de Phone Number PACS from Last 3 Months Insurance [facility]
[2025-07-04 09:22] LABS: Hematocrit 44.4 % (37.0-47.0); Hemoglobin 14.5 g/dL (12.2-16.2); Immature Granulocytes % 0.3 %; Mean Corpuscular HGB Conc 32.7 g/dL (31.8-35.4); Mean Corpuscular Hemoglobin 29.9 pg (27.0-31.2); Mean Corpuscular Volume 91.5 fl (81-99); Nucleated Red Blood Cells % 0 %; Platelet Count 334 K/mm3 (142-424); Red Blood Count 4.85 M/mm3 (4.20-5.40); Red Cell Distribution Width-SD 39.4 fL; White Blood Count 6.6 K/mm3 (4.8-10.8)
[2025-07-04 10:17] LABS: Alanine Aminotransferase 12 U/L (12-78); Albumin Level 4.7 g/dl (3.5-5.0); Albumin/Globulin Ratio 1.5 (1.1-1.8); Alkaline Phosphatase 57 U/L (38-126); Anion Gap 12.1 mEq/L (5-15); Aspartate Amino Transferase 23 U/L (14-36); Bilirubin,Total 0.6 mg/dl (0.2-1.3); Blood Urea Nitrogen 11 mg/dl (7-17); Calcium 9.5 mg/dl (8.4-10.2); Carbon Dioxide 22 mmol/L (22.0-30.0); Chloride 103 mmol/L (98-107); Creatinine,Serum 0.60 mg/dl (0.52-1.04); Estimated Glomerular Filt Rate 108 ml/min (>60); GFR (African American) 131 ML/MIN (>60); Globulin 3.1 g/dL (1.3-3.2); Glucose 82 mg/dl (74-100); Potassium 4.1 mmoL/L (3.5-5.1); Sodium 133 mmol/L (136-145); Total Protein,Serum 7.8 g/dl (6.3-8.2)
[2025-07-04 10:19] LABS: 25-OH Vitamin D, Total 41.0 ng/mL (30-100)
[2025-07-04 10:36] LABS: Free Thyroxine Index 2.0 ug/dL (5.93-13.13); T4 (Thyroxine) 6.8 ug/dl (5.53-11.0); Triiodothryronine (T3) Uptake 30 % (23.5-40.5)
[2025-07-04 10:49] LABS: Thyroid Stimulating Hormone 0.85 uIU/mL (0.465-4.68)
[2025-07-04 10:50] LABS: Thyroid Stimulating Hormone 0.87 uIU/mL (0.465-4.68)
[2025-07-04 10:53] LABS: Ferritin 52.3 ng/ml (6.24-137)
[2025-07-04 11:08] LABS: Vitamin B12 767 pg/mL (239-931)
== END 2025-07-04 23:59 | disposition home or self-care (01) ==
LOC: LAB 08:48
PROVIDERS: PCP Nurse Practitioner Family; Visit Provider Nurse Practitioner Obstetrics & Gynecology
DX: R53.83 Other fatigue (principal)
CPT/HCPCS: 36415; 80053; 82306; 82607; 82728; 84436; 84443; 84479; 85025